=== PATIENT | male | born 1955 | race Hispanic/Latino ===

== ENCOUNTER 2017-04-13 17:25 | Inpatient (IN) | payer BC, OTHER ==
[~2017-04-13] VITALS: Ht 172.7 cm; Wt 96.4 kg
[2017-04-13] MEDS: FAMOTIDINE 20MG TAB 20 MG TAB PO SCH (09:00)
[~2017-04-13 17:25] MED LIST: FOLI1TAB15 PO; FURO40TA7 PO; GLIM2TAB3 PO; LACT10SO PO; MULT-1258 PO; PROP10TA10 PO; RANI150C4 PO; SPIR50TA PO; SUCR1TAB2 PO; THIAM100TB PO
[2017-04-13 18:17] LABS: BASOPHILS % (AUTO) 0.7 % (0.0-5.0); EOSINOPHILS % (AUTO) 2.7 % (0.0-8.0); HEMATOCRIT 35.8 % (42-54); LYMPHOCYTES % (AUTO) 9.9 % (21.0-51.0); MEAN CORPUSCULAR HEMOGLOBIN 35.3 pg (27.0-33.0); MEAN CORPUSCULAR HGB CONC 34.7 g/dL (32.0-36.0); MEAN CORPUSCULAR VOLUME 101.8 fL (79-99); MONOCYTES % (AUTO) 11.4 % (3.0-13.0); NEUTROPHILS % (AUTO) 75.3 % (40.0-77.0); NUCLEATED RED BLOOD CELLS 0.1 % (0.0-0.19); PLATELET COUNT (AUTO) 97 K/uL (130-400); RED BLOOD CELL COUNT(AUTO) 3.51 MIL/uL (4.50-6.20); RED CELL DISTRIBUTION WIDTH 13.8 % (11.0-15.5); WHITE BLOOD COUNT (AUTO) 6.3 K/uL (4.8-10.8)
[2017-04-13 18:27] LABS: CREATININE 0.9 mg/dL (0.5-1.5); POTASSIUM 3.5 mmol/L (3.5-5.1)
[2017-04-13 18:28] LABS: INR 1.23 (0.85-1.15); PARTIAL THROMBOPLASTIN TIME 28.6 SEC (26.3-35.5); PROTHROMBIN TIME 12.9 SEC (9.6-11.6)
[2017-04-13 18:32] LABS: ALBUMIN 2.3 g/dL (3.5-5.0); BILIRUBIN,TOTAL 2.5 mg/dL (0.2-1.0); TOTAL PROTEIN, SERUM 6.6 g/dL (6.0-8.3)
[2017-04-13 18:55] LABS: APPEARANCE,URINE Clear (CLEAR); BILIRUBIN,URINE Negative (NEGATIVE); COLOR,URINE Dark Yellow (YELLOW); GLUCOSE, URINE (UA) Negative (NEGATIVE); KETONES,URINE Negative (NEGATIVE); LEUKOCYTE ESTERASE ,URINE Large (NEGATIVE); NITRATE,URINE Positive (NEGATIVE); OCCULT BLOOD,URINE Moderate (NEGATIVE); PH,URINE 6.5 (5.0-8.0); PROTEIN,URINE Negative (NEGATIVE)
[2017-04-13 19:15] LABS: BACTERIA,URINE Many /HPF (None Seen)
[2017-04-13] MEDS ORDERED: POTASSIUM CHLORIDE 10% ELIXIR 20 MEQ/15 ML UDCUP PO PRN (22:00)
[2017-04-13] MEDS ORDERED: POTASSIUM CHLORIDE 20MEQ/100ML 100 ML IV PRN (22:00)
[2017-04-13] MEDS ORDERED: POTASSIUM CHLORIDE 20 MEQ ERTAB PO PRN (22:00)
[2017-04-13] MEDS: CEFTRIAXONE SODIUM 1 GM IVP SCH (22:00)
[2017-04-13] MEDS ORDERED: LIDOCAINE HCL-MPF 1% 2ML VIAL IJ PRN (22:00)
[2017-04-14] MEDS ORDERED: HYDRALAZINE HCL 20 MG/ML VIAL IV PRN (01:00)
[2017-04-14] MEDS ORDERED: DEXTROSE 50%-WATER 50 ML DISP.SYRIN IV PRN (01:00)
[2017-04-14] MEDS ORDERED: POTASSIUM CHLORIDE 20MEQ/100ML 100 ML IV PRN (01:00)
[2017-04-14] MEDS ORDERED: GLUCAGON 1MG KIT 1 MG ML IM PRN (01:00)
[2017-04-14] MEDS ORDERED: MORPHINE SULFATE 2 MG/ML 1ML SYG IVP PRN ×2 (01:00)
[2017-04-14] MEDS ORDERED: ONDANSETRON HCL 4 MG/2 ML VIAL IVP PRN (01:00)
[2017-04-14] MEDS ORDERED: CEFTRIAXONE SODIUM 1 GM ONE (04:37)
[2017-04-14 05:45] LABS: BASOPHILS % (AUTO) 0.5 % (0.0-5.0); EOSINOPHILS % (AUTO) 2.3 % (0.0-8.0); HEMATOCRIT 35.4 % (42-54); LYMPHOCYTES % (AUTO) 10.8 % (21.0-51.0); MEAN CORPUSCULAR HGB CONC 34.7 g/dL (32.0-36.0); MEAN CORPUSCULAR VOLUME 103.6 fL (79-99); MONOCYTES % (AUTO) 13.2 % (3.0-13.0); NEUTROPHILS % (AUTO) 73.2 % (40.0-77.0); PLATELET COUNT (AUTO) 83 K/uL (130-400); RED BLOOD CELL COUNT(AUTO) 3.42 MIL/uL (4.50-6.20); RED CELL DISTRIBUTION WIDTH 14.2 % (11.0-15.5); WHITE BLOOD COUNT (AUTO) 4.8 K/uL (4.8-10.8)
[2017-04-14 05:55] LABS: INR 1.28 (0.85-1.15); PROTHROMBIN TIME 13.4 SEC (9.6-11.6)
[2017-04-14 06:03] LABS: ALBUMIN 2.2 g/dL (3.5-5.0); BILIRUBIN,TOTAL 2.3 mg/dL (0.2-1.0); CREATININE 1.1 mg/dL (0.5-1.5); POTASSIUM 4.1 mmol/L (3.5-5.1); TOTAL PROTEIN, SERUM 6.1 g/dL (6.0-8.3)
[2017-04-14] MEDS ORDERED: LACTULOSE 20 GM/30 ML UDCUP ONE ×2 (06:37→13:59)
[2017-04-14] MEDS: LACTULOSE 20 GM/30 ML UDCUP PO SCH ×3 (08:34→22:05)
[2017-04-14] MEDS ORDERED: FAMOTIDINE 20MG TAB 20 MG TAB ONE (08:35)
[2017-04-14] MEDS ORDERED: INSULIN HUMULIN R 100 UNIT/ML 3ML ONE ×2 (08:37→11:56)
[2017-04-14] MEDS: INSULIN HUMULIN R 100 UNIT/ML 3ML SQ SCH ×4 (08:41→22:14)
[2017-04-14] MEDS: FAMOTIDINE 20MG TAB 20 MG TAB PO SCH ×2 (08:42→22:05)
[2017-04-14 15:13] LABS: APPEARANCE BODY FLUID CLEAR (CLEAR); SPECIMENTYPE,BODY FLUID ASCITES
[2017-04-14 15:14] LABS: COLOR,BODY FLUID LT YELLOW (LT YELLOW); TOTAL VOLUME,BODY FLUID 2000 mL
[2017-04-14 15:26] LABS: BODY FLUID RBC 275 /cu. mm.
[2017-04-14 15:27] LABS: BODY FLUID WBC 356 /cu. mm.
[2017-04-14 15:36] LABS: ALBUMIN,BODY FLUID < 0.6 g/dL
[2017-04-14 15:44] LABS: BF LYMPHOCYTE 4 %; BF MESOTHELIAL 3 %; BF MONOCYTE 12 %
[2017-04-14 17:01] VITALS: BP 150/69
[2017-04-14 20:00] VITALS: BP 138/71
[2017-04-14] MEDS: CEFTRIAXONE SODIUM 1 GM IVP SCH (22:06)
[2017-04-14 23:57] VITALS: BP 137/69
[2017-04-15 03:24] LABS: BASOPHILS % (AUTO) 0.5 % (0.0-5.0); EOSINOPHILS % (AUTO) 2.8 % (0.0-8.0); HEMATOCRIT 32.4 % (42-54); LYMPHOCYTES % (AUTO) 13.5 % (21.0-51.0); MEAN CORPUSCULAR HEMOGLOBIN 35.5 pg (27.0-33.0); MEAN CORPUSCULAR HGB CONC 34.7 g/dL (32.0-36.0); MEAN CORPUSCULAR VOLUME 102.4 fL (79-99); MONOCYTES % (AUTO) 15.4 % (3.0-13.0); NEUTROPHILS % (AUTO) 67.8 % (40.0-77.0); PLATELET COUNT (AUTO) 70 K/uL (130-400); RED BLOOD CELL COUNT(AUTO) 3.17 MIL/uL (4.50-6.20); RED CELL DISTRIBUTION WIDTH 14.2 % (11.0-15.5); WHITE BLOOD COUNT (AUTO) 3.9 K/uL (4.8-10.8)
[2017-04-15 04:00] VITALS: BP 132/62
[2017-04-15] MEDS: INSULIN HUMULIN R 100 UNIT/ML 3ML SQ SCH ×4 (06:28→21:17)
[2017-04-15 08:00] VITALS: BP 151/68
[2017-04-15] MEDS: FAMOTIDINE 20MG TAB 20 MG TAB PO SCH ×2 (09:24→21:12)
[2017-04-15] MEDS: LACTULOSE 20 GM/30 ML UDCUP PO SCH ×3 (09:24→21:12)
[2017-04-15 12:09] VITALS: BP 147/72
[2017-04-15 16:00] VITALS: BP 128/69
[2017-04-15 20:00] VITALS: BP 133/69
[2017-04-15] MEDS: CEFTRIAXONE SODIUM 1 GM IVP SCH (21:18)
[2017-04-16] VITALS (17 sets, daily range): BP systolic 118–154; BP diastolic 56–79
[2017-04-16 05:48] LABS: BASOPHILS % (AUTO) 0.7 % (0.0-5.0); HEMATOCRIT 33.8 % (42-54); LYMPHOCYTES % (AUTO) 15.2 % (21.0-51.0); MEAN CORPUSCULAR HEMOGLOBIN 36.7 pg (27.0-33.0); MEAN CORPUSCULAR HGB CONC 35.9 g/dL (32.0-36.0); MEAN CORPUSCULAR VOLUME 102.2 fL (79-99); NEUTROPHILS % (AUTO) 68.1 % (40.0-77.0); PLATELET COUNT (AUTO) 82 K/uL (130-400); RED CELL DISTRIBUTION WIDTH 13.7 % (11.0-15.5); WHITE BLOOD COUNT (AUTO) 3.9 K/uL (4.8-10.8)
[2017-04-16 05:52] LABS: INR 1.21 (0.85-1.15); PROTHROMBIN TIME 12.7 SEC (9.6-11.6)
[2017-04-16 06:08] LABS: CREATININE 0.8 mg/dL (0.5-1.5)
[2017-04-16] MEDS: INSULIN HUMULIN R 100 UNIT/ML 3ML SQ SCH ×4 (07:30→22:11)
[2017-04-16] MEDS: LACTULOSE 20 GM/30 ML UDCUP PO SCH ×3 (09:00→21:57)
[2017-04-16] MEDS: FAMOTIDINE 20MG TAB 20 MG TAB PO SCH ×2 (09:00→19:40)
[2017-04-16] MEDS ORDERED: FENTANYL CITRATE PF 50 MCG/1 ML 2ML VIAL ONE ×2 (17:36→17:46)
[2017-04-16] MEDS ORDERED: MIDAZOLAM HCL 1 MG/ML 2ML VIAL ONE (17:36)
[2017-04-16] MEDS: FUROSEMIDE 40 MG TABLET PO SCH (19:40)
[2017-04-16] MEDS: SPIRONOLACTONE 25 MG TAB PO SCH (19:40)
[2017-04-16] MEDS ORDERED: WATER FOR INJECTION,STERILE 20 ML VIAL ONE (21:23)
[2017-04-16] MEDS: CEFTRIAXONE SODIUM 1 GM IVP SCH (21:57)
[2017-04-17 00:20] VITALS: BP 145/74
[2017-04-17 03:53] LABS: HEMATOCRIT 35.9 % (42-54); MEAN CORPUSCULAR HEMOGLOBIN 35.1 pg (27.0-33.0); MEAN CORPUSCULAR HGB CONC 34.4 g/dL (32.0-36.0); MEAN CORPUSCULAR VOLUME 102.1 fL (79-99); PLATELET COUNT (AUTO) 94 K/uL (130-400); RED BLOOD CELL COUNT(AUTO) 3.52 MIL/uL (4.50-6.20); RED CELL DISTRIBUTION WIDTH 14.1 % (11.0-15.5); WHITE BLOOD COUNT (AUTO) 3.9 K/uL (4.8-10.8)
[2017-04-17] MEDS: INSULIN HUMULIN R 100 UNIT/ML 3ML SQ SCH ×2 (06:21→21:00)
[2017-04-17 07:00] VITALS: BP 128/74
[2017-04-17] MEDS: FAMOTIDINE 20MG TAB 20 MG TAB PO SCH ×2 (09:05→20:11)
[2017-04-17] MEDS: SPIRONOLACTONE 25 MG TAB PO SCH (09:05)
[2017-04-17] MEDS: FUROSEMIDE 40 MG TABLET PO SCH (09:05)
[2017-04-17] MEDS: LACTULOSE 20 GM/30 ML UDCUP PO SCH ×3 (09:05→20:11)
[2017-04-17 11:00] VITALS: BP 143/72
[2017-04-17 16:00] VITALS: BP 132/67
[2017-04-17] MEDS ORDERED: WATER FOR INJECTION,STERILE 20 ML VIAL ONE (19:42)
[2017-04-17] MEDS: CEFTRIAXONE SODIUM 1 GM IVP SCH (20:11)
[2017-04-17 21:00] VITALS: BP 127/63
[2017-04-18 00:21] VITALS: BP 125/53
[2017-04-18 04:55] VITALS: BP 127/75
[2017-04-18] MEDS: INSULIN HUMULIN R 100 UNIT/ML 3ML SQ SCH ×2 (06:14→12:07)
[2017-04-18 06:37] LABS: HEMATOCRIT 36.1 % (42-54); MEAN CORPUSCULAR HEMOGLOBIN 36.1 pg (27.0-33.0); MEAN CORPUSCULAR HGB CONC 35.1 g/dL (32.0-36.0); MEAN CORPUSCULAR VOLUME 102.9 fL (79-99); NUCLEATED RED BLOOD CELLS 0.1 % (0.0-0.19); PLATELET COUNT (AUTO) 98 K/uL (130-400); RED BLOOD CELL COUNT(AUTO) 3.51 MIL/uL (4.50-6.20); RED CELL DISTRIBUTION WIDTH 13.9 % (11.0-15.5)
[2017-04-18 07:00] VITALS: BP 157/73
[2017-04-18] MEDS: SPIRONOLACTONE 25 MG TAB PO SCH (09:38)
[2017-04-18] MEDS: FAMOTIDINE 20MG TAB 20 MG TAB PO SCH (09:38)
[2017-04-18] MEDS: LACTULOSE 20 GM/30 ML UDCUP PO SCH (09:39)
[2017-04-18] MEDS: FUROSEMIDE 40 MG TABLET PO SCH (09:39)
[2017-04-18 11:00] VITALS: BP 153/78
[2017-04-18 19:00] VITALS: BP 111/58
== END 2017-04-18 15:05 | disposition home or self-care (01) | DRG 433 ==
LOC: EDH 17:25 → OBSVTOIN 21:20 → EDHIP 21:20 → 3AH 04-14 16:20
PROVIDERS: ADMIT Family Medicine; ATTEND Family Medicine
PROC: 0W9G3ZZ Drainage of Peritoneal Cavity, Percutaneous Approach (ICD-10-PCS; principal; 2017-04-14)
PROC: 0DJ08ZZ Inspection of Upper Intestinal Tract, Via Natural or Artificial Opening Endoscopic (ICD-10-PCS; 2017-04-16)
DX: K70.31 Alcoholic cirrhosis of liver with ascites (principal); N39.0 Urinary tract infection, site not specified; D69.59 Other secondary thrombocytopenia; K76.6 Portal hypertension; E11.65 Type 2 diabetes mellitus with hyperglycemia; E44.1 Mild protein-calorie malnutrition; D62 Acute posthemorrhagic anemia; C18.9 Malignant neoplasm of colon, unspecified; B96.20 Unspecified Escherichia coli [E. coli] as the cause of diseases classified elsewhere; K29.70 Gastritis, unspecified, without bleeding; K55.20 Angiodysplasia of colon without hemorrhage; Z87.891 Personal history of nicotine dependence; Z68.32 Body mass index [BMI] 32.0-32.9, adult; Z88.8 Allergy status to other drugs, medicaments and biological substances
CPT/HCPCS: 36415; 49083; 71046; 80048; 80053; 81001; 82042; 82105; 82140; 82948; 85025; 85027; 85610; 85730; 87071; 87088; 87186; 87205; 89051; A4218; J0696; J1815; J2250; J3010

== ENCOUNTER 2017-08-03 19:01 | Emergency (ER) | payer OTHER ==
[~2017-08-03 19:01] MED LIST changes: -PROP10TA10 PO
[2017-08-03 19:55] LABS: BASOPHILS % (AUTO) 0.5 % (0.0-5.0); EOSINOPHILS % (AUTO) 2.2 % (0.0-8.0); MEAN CORPUSCULAR HEMOGLOBIN 35.1 pg (27.0-33.0); MEAN CORPUSCULAR HGB CONC 35.1 g/dL (32.0-36.0); MEAN CORPUSCULAR VOLUME 99.8 fL (79-99); MONOCYTES % (AUTO) 11.8 % (3.0-13.0); NEUTROPHILS % (AUTO) 74.5 % (40.0-77.0); PLATELET COUNT (AUTO) 94 K/uL (130-400); RED BLOOD CELL COUNT(AUTO) 3.61 MIL/uL (4.50-6.20); RED CELL DISTRIBUTION WIDTH 13.5 % (11.0-15.5); WHITE BLOOD COUNT (AUTO) 5.2 K/uL (4.8-10.8)
[2017-08-03 20:09] LABS: POTASSIUM 3.8 mmol/L (3.5-5.1)
[2017-08-03 20:15] LABS: ALBUMIN 2.4 g/dL (3.5-5.0); TOTAL PROTEIN, SERUM 6.9 g/dL (6.0-8.3)
[2017-08-03 20:49] LABS: RAPID GROUP A STREP NEGATIVE (NEGATIVE)
== END 2017-08-03 21:47 | disposition home or self-care (01) ==
LOC: DTH 19:01
DX: K52.9 Noninfective gastroenteritis and colitis, unspecified (principal); K74.60 Unspecified cirrhosis of liver; E11.9 Type 2 diabetes mellitus without complications; Z88.8 Allergy status to other drugs, medicaments and biological substances; Z98.890 Other specified postprocedural states
CPT/HCPCS: 36415; 80053; 80339; 82140; 83605; 83690; 85025; 87804; 87880; 93005

== ENCOUNTER 2018-10-26 13:44 | Inpatient (IN) | payer OTHER | END 2018-10-29 10:25 | disposition home or self-care (01) | LOC: EDH 13:44 → EDHIP 18:25 → 3AH 21:11 | DX: J20.9 Acute bronchitis, unspecified (principal); R18.8 Other ascites ==

== ENCOUNTER 2019-02-05 16:55 | Inpatient (IN) | payer OTHER ==
[2019-02-04 19:00] VITALS: BP 119/60
[~2019-02-05] VITALS: Ht 172.7 cm; Wt 91.9 kg
[~2019-02-05 16:55] MED LIST changes: +ERGO2000 PO; -FOLI1TAB15 PO; +FURO20TA6 PO; -FURO40TA7 PO; -GLIM2TAB3 PO; +GLIM2TAB4 PO; -LACT10SO PO; +LACT10SO9 PO; +LOSA50TA64 PO; +RIFA550T PO
[2019-02-05] MEDS ORDERED: SODIUM CHLORIDE 0.9% 1000ML 1,000 ML IV ONE ×2 (17:21→19:33)
[2019-02-05 17:36] LABS: BASOPHILS % (AUTO) 0.5 % (0.0-5.0); EOSINOPHILS % (AUTO) 1.4 % (0.0-8.0); HEMATOCRIT 34.4 % (42-54); LYMPHOCYTES % (AUTO) 10.7 % (21.0-51.0); MEAN CORPUSCULAR HEMOGLOBIN 36.2 pg (27.0-33.0); MEAN CORPUSCULAR HGB CONC 35.7 g/dL (32.0-36.0); MEAN CORPUSCULAR VOLUME 101.2 fL (79-99); MONOCYTES % (AUTO) 16.6 % (3.0-13.0); NEUTROPHILS % (AUTO) 70.8 % (40.0-77.0); PLATELET COUNT (AUTO) 99 K/uL (130-400); RED BLOOD CELL COUNT(AUTO) 3.39 MIL/uL (4.50-6.20); RED CELL DISTRIBUTION WIDTH 14.8 % (11.0-15.5); WHITE BLOOD COUNT (AUTO) 5.7 K/uL (4.8-10.8)
[2019-02-05 17:46] LABS: CREATININE 1.9 mg/dL (0.5-1.5)
[2019-02-05 17:55] LABS: ALBUMIN 2.6 g/dL (3.5-5.0); BILIRUBIN,TOTAL 2.1 mg/dL (0.2-1.0); TOTAL PROTEIN, SERUM 6.7 g/dL (6.0-8.3)
[2019-02-05 17:57] LABS: PLATELET MORPHOLOGY COMMENT SLIGHTLY DECREASED
[2019-02-05] MEDS ORDERED: METRONIDAZOLE 500MG/100ML BAG 100 ML ONE (18:41)
[2019-02-05] MEDS ORDERED: LEVOFLOXACIN 500 MG/D5W 100 ML 100 ML ONE (18:41)
[2019-02-05] MEDS: LEVOFLOXACIN 500 MG/D5W 100 ML 100 ML IV SCH (19:00)
[2019-02-05] MEDS ORDERED: SODIUM CHLORIDE 0.9% 1000ML 1,000 ML IV SCH (19:00)
[2019-02-05] MEDS ORDERED: DEXTROSE 50%-WATER 50 ML DISP.SYRIN IV PRN (19:30)
[2019-02-05] MEDS ORDERED: GLUCAGON 1MG KIT 1 MG ML IM PRN (19:30)
[2019-02-05] MEDS: FAMOTIDINE/PF 20 MG/2 ML VIAL IV SCH (21:00)
[2019-02-05] MEDS: INSULIN HUMULIN R 100 UNIT/ML 3ML SQ SCH (21:00)
[2019-02-05] MEDS ORDERED: RIFA550T PO (21:46)
[2019-02-05] MEDS ORDERED: ERGO1POW10 MC (21:50)
[2019-02-05] MEDS ORDERED: THIA100T75 PO (21:56)
[2019-02-05] MEDS ORDERED: FURO40TA5 PO (21:56)
[2019-02-05] MEDS ORDERED: FAMO20TA8 PO (21:56)
[2019-02-05] MEDS ORDERED: SPIR50TA5 PO (21:56)
[2019-02-05 22:26] LABS: APPEARANCE,URINE Clear (CLEAR); BILIRUBIN,URINE Negative (NEGATIVE); COLOR,URINE Yellow (YELLOW); GLUCOSE, URINE (UA) Negative (NEGATIVE); KETONES,URINE Negative (NEGATIVE); LEUKOCYTE ESTERASE ,URINE Negative (NEGATIVE); NITRATE,URINE Negative (NEGATIVE); OCCULT BLOOD,URINE Negative (NEGATIVE); PROTEIN,URINE Negative (NEGATIVE)
[2019-02-05] MEDS: MORPHINE SULFATE 2 MG/ML 1ML SYG IV PRN (22:34)
[2019-02-05 22:35] LABS: AMPHET/METH SCREEN,URINE NEGATIVE (NEGATIVE); BARBITURATE SCREEN, URINE NEGATIVE (NEGATIVE); BENZODIAZEPINES SCREEN,URINE NEGATIVE (NEGATIVE); CANNABINOID SCREEN,URINE NEGATIVE (NEGATIVE); COCAINE SCREEN,URINE POSITIVE (NEGATIVE); OPIATE SCREEN,URINE NEGATIVE (NEGATIVE); PHENCYCLIDINE SCREEN,URINE NEGATIVE (NEGATIVE)
[2019-02-05 23:49] VITALS: BP 124/57
--- NOTE | 2019-02-05 23:52 | NUR ---
fluids karley Bain and ordered Normal Saline at 100 ml/hr to prevent dehydration due to patient's diarrhea
[2019-02-06] VITALS (16 sets, daily range): BP systolic 103–140; BP diastolic 43–61
[2019-02-06] MEDS: SODIUM CHLORIDE 0.9% 1000ML 1,000 ML IV SCH ×3 (00:28→20:00)
[2019-02-06] MEDS: ONDANSETRON HCL 4 MG/2 ML VIAL IV PRN ×2 (00:40→06:22)
[2019-02-06] MEDS: MORPHINE SULFATE 2 MG/ML 1ML SYG IV PRN ×3 (01:58→08:44)
[2019-02-06] MEDS: PROMETHAZINE HCL 25 MG/ML 1ML AMPULE IM SCH (01:59)
[2019-02-06] MEDS: METRONIDAZOLE 500MG/100ML BAG 100 ML IV SCH ×4 (03:16→22:03)
[2019-02-06 05:15] LABS: CREATININE 1.3 mg/dL (0.5-1.5); POTASSIUM 4.6 mmol/L (3.5-5.1)
[2019-02-06 05:30] LABS: BASOPHILS % (AUTO) 0.3 % (0.0-5.0); EOSINOPHILS % (AUTO) 0.2 % (0.0-8.0); HEMATOCRIT 33.4 % (42-54); LYMPHOCYTES % (AUTO) 6.8 % (21.0-51.0); MEAN CORPUSCULAR HEMOGLOBIN 36.9 pg (27.0-33.0); MEAN CORPUSCULAR HGB CONC 35.9 g/dL (32.0-36.0); MEAN CORPUSCULAR VOLUME 102.9 fL (79-99); MONOCYTES % (AUTO) 10.4 % (3.0-13.0); NEUTROPHILS % (AUTO) 82.3 % (40.0-77.0); PLATELET COUNT (AUTO) 75 K/uL (130-400); RED BLOOD CELL COUNT(AUTO) 3.24 MIL/uL (4.50-6.20); RED CELL DISTRIBUTION WIDTH 14.4 % (11.0-15.5); WHITE BLOOD COUNT (AUTO) 5.6 K/uL (4.8-10.8)
[2019-02-06] MEDS: SUCRALFATE 1 GM TABLET PO SCH ×3 (07:01→19:33)
[2019-02-06] MEDS: INSULIN HUMULIN R 100 UNIT/ML 3ML SQ SCH ×4 (07:30→20:57)
[2019-02-06] MEDS ORDERED: MORPHINE SULFATE 4 MG/1ML SYG IV PRN (08:30)
[2019-02-06] MEDS: SPIRONOLACTONE 25 MG TAB PO SCH (08:45)
[2019-02-06] MEDS: FAMOTIDINE/PF 20 MG/2 ML VIAL IV SCH ×2 (08:45→21:54)
[2019-02-06] MEDS: LOSARTAN 50 MG TABLET PO SCH (08:45)
[2019-02-06] MEDS: RIFAXIMIN 550 MG TABLET PO SCH ×2 (08:46→21:54)
[2019-02-06] MEDS: FUROSEMIDE 40 MG TABLET PO SCH (08:46)
[2019-02-06] MEDS: THIAMINE HCL 100 MG TABLET PO SCH (08:46)
[2019-02-06 11:36] LABS: INR 1.23 (0.85-1.15); PARTIAL THROMBOPLASTIN TIME 32.1 SEC (26.3-35.5); PROTHROMBIN TIME 12.8 SEC (9.6-11.6)
[2019-02-06] MEDS ORDERED: GLYCOPYRROLATE 0.2 MG/ML 5 ML VIAL ONE (13:50)
[2019-02-06] MEDS ORDERED: PROPOFOL 10 MG/ML 20ML VIAL IV ONE (13:50)
[2019-02-06] MEDS ORDERED: LIDOCAINE HCL 1% 20 ML VIAL ONE (13:51)
[2019-02-06] MEDS ORDERED: SUCCINYLCHOLINE CHLORIDE 20 MG/ML 10 ML VIAL ONE (13:51)
--- NOTE | 2019-02-06 13:55 | NUR ---
pt off the floor for an EGD by Dr. Main at this time.
--- NOTE | 2019-02-06 16:53 | NUR ---
RD NOTIFICATION Dx: Gastroenteritis, Sepsis. Hx: Liver Cirrhosis, Ascites, DM, HTN, Hernia. Diet: NPO. LBM: 02/05; diarrhea. Skin intact, no edema noted. Pt with poor appetite prior to admission and experiencing severe abdominal pain. Pain improving as per pt. Pt stated he is eating healthier these past couple of weeks and would like more information regarding dietary recommendations. RD recommends continue current diet. Advance diet as tolerated to 75gmCCD, 2gmNa, Low fat. Recommend a multivitamin supplement. Recommend Vitamin B12 and Folic acid blood draw due to elevated MCV and MCH. RD provided Cirrhosis, Diabetes and Low fat Medical Nutrition Therapy. Recommend GI consult due to positive stool occult. RD will continue to monitor and follow up as needed. Thank you. Dottie Aldridge MS, RDN Addendum: 02/06/19 at [address] RD Amended: Links added. Addendum: 02/07/19 at [address] RD Recommend Vitamin B12 and Folic acid supplementation due to elevated MCV and MCH
--- NOTE | 2019-02-06 16:54 | NUR ---
DIET EDUCATION Pt stated he is eating healthier these past couple of weeks and would like more information regarding dietary recommendations. NEYMAR provided Cirrhosis, Diabetes and Low fat Medical Nutrition Therapy. Family asked questions, NEYMAR answered. Family verbalized understanding. Materials provided. Addendum: 02/06/19 at [address] RD Amended: Links added.
--- NOTE | 2019-02-06 17:56 | NUR ---
INITIAL MET W PT AND SPOUSE MARIIA WHO WILL PROVIDE TRANSPORT; PT HAS HAD CIRRHOSIS X14 YEARS,2 SCOPES, 3 PARACENTESISI, LAST IN OCTOBER. DOES NOT WORK, IS INDP, DRIVE, NO DME- BUT IS VERY WEAK AND HAS A LOT OF BACK PAIN WHEN STANDING OR SITTING TOO LONG. WILL DO PT EVAL FOR POSSIBLE ROLLING WALKER? PATIET THOUGHT THIS WOULD BE VERY HELPFUL HE CANNOT WALK LONG DISTANCES AND HAS TO LOOK SUDDENLY FOR A PLACE TO SIT. STATES WAS HAPPY TO HAVE NUTRITION CONSULT. Addendum: 02/06/19 at 1800 by SUREKHA LALA RN CM Amended: Links added.
[2019-02-06] MEDS: LEVOFLOXACIN 500 MG/D5W 100 ML 100 ML IV SCH (19:33)
[2019-02-06] MEDS ORDERED: LACTULOSE 20 GM/30 ML UDCUP PO SCH (21:00)
[2019-02-07] MEDS: PROMETHAZINE HCL 25 MG/ML 1ML AMPULE IM SCH (01:15)
[2019-02-07 03:39] VITALS: BP 126/69
[2019-02-07 05:16] LABS: BASOPHILS % (AUTO) 0.4 % (0.0-5.0); EOSINOPHILS % (AUTO) 2.3 % (0.0-8.0); HEMATOCRIT 33.2 % (42-54); LYMPHOCYTES % (AUTO) 13.3 % (21.0-51.0); MEAN CORPUSCULAR HEMOGLOBIN 36.9 pg (27.0-33.0); MEAN CORPUSCULAR VOLUME 102.6 fL (79-99); MONOCYTES % (AUTO) 14.2 % (3.0-13.0); NEUTROPHILS % (AUTO) 69.8 % (40.0-77.0); PLATELET COUNT (AUTO) 90 K/uL (130-400); RED BLOOD CELL COUNT(AUTO) 3.24 MIL/uL (4.50-6.20); RED CELL DISTRIBUTION WIDTH 14.6 % (11.0-15.5); WHITE BLOOD COUNT (AUTO) 4.7 K/uL (4.8-10.8)
[2019-02-07 05:21] LABS: ALBUMIN 2.4 g/dL (3.5-5.0); BILIRUBIN,DIRECT 0.7 mg/dL (0.0-0.3); BILIRUBIN,TOTAL 1.4 mg/dL (0.2-1.0); CREATININE 1.2 mg/dL (0.5-1.5); POTASSIUM 3.7 mmol/L (3.5-5.1); TOTAL PROTEIN, SERUM 6.4 g/dL (6.0-8.3)
[2019-02-07] MEDS: INSULIN HUMULIN R 100 UNIT/ML 3ML SQ SCH (05:52)
[2019-02-07] MEDS: SODIUM CHLORIDE 0.9% 1000ML 1,000 ML IV SCH (06:00)
[2019-02-07] MEDS: METRONIDAZOLE 500MG/100ML BAG 100 ML IV SCH (06:23)
[2019-02-07] MEDS: SUCRALFATE 1 GM TABLET PO SCH ×2 (06:23→11:14)
[2019-02-07 08:15] VITALS: BP 114/58
[2019-02-07] MEDS: FAMOTIDINE/PF 20 MG/2 ML VIAL IV SCH (11:13)
[2019-02-07] MEDS: FUROSEMIDE 40 MG TABLET PO SCH (11:14)
[2019-02-07] MEDS: LOSARTAN 50 MG TABLET PO SCH (11:14)
[2019-02-07] MEDS: RIFAXIMIN 550 MG TABLET PO SCH (11:14)
[2019-02-07] MEDS: SPIRONOLACTONE 25 MG TAB PO SCH (11:14)
[2019-02-07] MEDS: THIAMINE HCL 100 MG TABLET PO SCH (11:14)
[2019-02-07 19:17] VITALS: BP 131/72
[2019-02-10] MEDS ORDERED: EPINEPHRINE 1 MG/ML AMPULE ONE (10:08)
[2019-02-10] MEDS ORDERED: PROTAMINE SULFATE 10 MG/ML 25ML VIAL IV ONE (10:08)
[2019-02-10] MEDS ORDERED: AMINOCAPROIC ACID 250 MG/ML 20 ML VIAL IV ONE (10:08)
[2019-02-10] MEDS ORDERED: ESMOLOL HCL 10 MG/ML 10 ML VIAL ONE (10:08)
[2019-02-10] MEDS ORDERED: HEPARIN SODIUM 1000UNIT/ML 10ML VIAL ONE (10:08)
[2019-02-10] MEDS ORDERED: NOREPINEPHRINE BITARTRATE 1 MG/1 ML ML IV ONE (10:08)
[2019-02-10] MEDS ORDERED: LIDOCAINE PF 2% 5ML ABBOJECT ONE (10:08)
[2019-02-12] MEDS ORDERED: ERGOCALCIFEROL (VITAMIN D2) 50,000 UNIT CAPSULE PO SCH (06:30)
== END 2019-02-07 12:35 | disposition home or self-care (01) | DRG 871 ==
LOC: EDH 16:55 → EDHIP 18:46 → 3CH 21:18
PROVIDERS: ADMIT Hospitalist; ATTEND Hospitalist
PROC: 0DJ08ZZ Inspection of Upper Intestinal Tract, Via Natural or Artificial Opening Endoscopic (ICD-10-PCS; principal; 2019-02-06)
DX: A41.9 Sepsis, unspecified organism (principal); R65.21 Severe sepsis with septic shock; A09 Infectious gastroenteritis and colitis, unspecified; E44.0 Moderate protein-calorie malnutrition; D62 Acute posthemorrhagic anemia; E87.1 Hypo-osmolality and hyponatremia; K76.6 Portal hypertension; K26.7 Chronic duodenal ulcer without hemorrhage or perforation; K29.00 Acute gastritis without bleeding; K31.89 Other diseases of stomach and duodenum; K21.0 Gastro-esophageal reflux disease with esophagitis; I95.9 Hypotension, unspecified; K80.20 Calculus of gallbladder without cholecystitis without obstruction; K70.30 Alcoholic cirrhosis of liver without ascites; E86.1 Hypovolemia; R16.1 Splenomegaly, not elsewhere classified; R94.4 Abnormal results of kidney function studies; K57.30 Diverticulosis of large intestine without perforation or abscess without bleeding; I10 Essential (primary) hypertension; F14.10 Cocaine abuse, uncomplicated; E78.5 Hyperlipidemia, unspecified; F10.21 Alcohol dependence, in remission; E11.9 Type 2 diabetes mellitus without complications; Z96.1 Presence of intraocular lens; Z83.3 Family history of diabetes mellitus; Z82.49 Family history of ischemic heart disease and other diseases of the circulatory system; Z88.8 Allergy status to other drugs, medicaments and biological substances; Z91.09 Other allergy status, other than to drugs and biological substances; Z68.30 Body mass index [BMI] 30.0-30.9, adult; Z98.42 Cataract extraction status, left eye; Z98.41 Cataract extraction status, right eye
CPT/HCPCS: 36415; 43235; 71045; 74176; 80048; 80053; 80076; 80305; 81003; 82140; 82150; 82270; 82550; 82948; 83605; 83630; 83690; 84484; 85025; 85610; 85730; 86677; 87040; 87046; 93005; G0378; G0480; J0330; J1956; J2405; J2550; J2704; J3490; J7030

== ENCOUNTER 2019-02-27 08:10 | Emergency (ER) | payer OTHER ==
[~2019-02-27 08:10] MED LIST changes: +ERGO1POW10 MC; -ERGO2000 PO; +FAMO20TA8 PO; -FURO20TA6 PO; +FURO40TA5 PO; -SPIR50TA PO; +SPIR50TA5 PO; +THIA100T75 PO; -THIAM100TB PO
[2019-02-27 08:40] LABS: CREATININE 1.2 mg/dL (0.5-1.5); POTASSIUM 4.2 mmol/L (3.5-5.1)
[2019-02-27 08:45] LABS: ALBUMIN 2.4 g/dL (3.5-5.0); BILIRUBIN,TOTAL 1.1 mg/dL (0.2-1.0); TOTAL PROTEIN, SERUM 6.4 g/dL (6.0-8.3)
[2019-02-27 08:51] LABS: BASOPHILS % (AUTO) 0.7 % (0.0-5.0); EOSINOPHILS % (AUTO) 4.5 % (0.0-8.0); HEMATOCRIT 32.6 % (42-54); LYMPHOCYTES % (AUTO) 14.9 % (21.0-51.0); MEAN CORPUSCULAR HEMOGLOBIN 36.7 pg (27.0-33.0); MEAN CORPUSCULAR HGB CONC 34.9 g/dL (32.0-36.0); MEAN CORPUSCULAR VOLUME 105.3 fL (79-99); MONOCYTES % (AUTO) 12.2 % (3.0-13.0); NEUTROPHILS % (AUTO) 67.7 % (40.0-77.0); NUCLEATED RED BLOOD CELLS 0.1 % (0.0-0.19); PLATELET COUNT (AUTO) 89 K/uL (130-400); RED BLOOD CELL COUNT(AUTO) 3.09 MIL/uL (4.50-6.20); RED CELL DISTRIBUTION WIDTH 14.2 % (11.0-15.5); WHITE BLOOD COUNT (AUTO) 4.5 K/uL (4.8-10.8)
[2019-02-27] MEDS ORDERED: LACTULOSE 20 GM/30 ML UDCUP ONE (08:53)
[2019-02-27 09:52] LABS: PLATELET MORPHOLOGY COMMENT DECREASED
== END 2019-02-27 10:09 | disposition home or self-care (01) ==
LOC: EDH 08:10
DX: K72.90 Hepatic failure, unspecified without coma (principal); R00.1 Bradycardia, unspecified; E11.9 Type 2 diabetes mellitus without complications; K74.60 Unspecified cirrhosis of liver; Z98.890 Other specified postprocedural states; Z88.8 Allergy status to other drugs, medicaments and biological substances
CPT/HCPCS: 36415; 80053; 82140; 83690; 85025

== ENCOUNTER 2019-05-25 00:32 | Emergency (ER) | payer OTHER ==
[~2019-05-25 00:32] MED LIST changes: +GLIM2TAB30 PO; -GLIM2TAB4 PO
[2019-05-25] MEDS ORDERED: SODIUM CHLORIDE 0.9% 1000ML 1,000 ML IV ONE (01:01)
[2019-05-25] MEDS ORDERED: ONDANSETRON HCL 4 MG/2 ML VIAL ONE (01:01)
[2019-05-25 01:36] LABS: APPEARANCE,URINE Clear (CLEAR); BILIRUBIN,URINE Negative (NEGATIVE); COLOR,URINE Yellow (YELLOW); GLUCOSE, URINE (UA) >=1000 mg/dL (NEGATIVE); KETONES,URINE Negative (NEGATIVE); LEUKOCYTE ESTERASE ,URINE Negative (NEGATIVE); NITRATE,URINE Negative (NEGATIVE); OCCULT BLOOD,URINE Negative (NEGATIVE); PH,URINE 6.5 (5.0-8.0); PROTEIN,URINE Negative (NEGATIVE)
[2019-05-25 01:41] LABS: BASOPHILS % (AUTO) 0.6 % (0.0-5.0); CREATININE 1.1 mg/dL (0.5-1.5); EOSINOPHILS % (AUTO) 2.7 % (0.0-8.0); HEMATOCRIT 31.2 % (42-54); LYMPHOCYTES % (AUTO) 14.5 % (21.0-51.0); MEAN CORPUSCULAR HEMOGLOBIN 34.9 pg (27.0-33.0); MEAN CORPUSCULAR HGB CONC 35.3 g/dL (32.0-36.0); MONOCYTES % (AUTO) 13.6 % (3.0-13.0); NEUTROPHILS % (AUTO) 68.2 % (40.0-77.0); PLATELET COUNT (AUTO) 107 K/uL (130-400); POTASSIUM 4.4 mmol/L (3.5-5.1); RED BLOOD CELL COUNT(AUTO) 3.15 MIL/uL (4.50-6.20); RED CELL DISTRIBUTION WIDTH 13.5 % (11.0-15.5)
[2019-05-25 01:46] LABS: ALBUMIN 2.3 g/dL (3.5-5.0); BILIRUBIN,TOTAL 1.1 mg/dL (0.2-1.0); TOTAL PROTEIN, SERUM 6.5 g/dL (6.0-8.3)
[2019-05-25 01:54] LABS: INR 1.22 (0.85-1.15); PROTHROMBIN TIME 12.7 SEC (9.6-11.6)
[2019-05-25 01:55] LABS: BACTERIA,URINE None Seen /HPF (None Seen); RBC,URINE None Seen /HPF (0-1); SQUAMOUS EPITHELIAL CELL,UR Rare /HPF (0-2); WBC,URINE None Seen /HPF (0-1); YEAST,URINE BUDDING None Seen /HPF (None Seen)
[2019-05-25] MEDS ORDERED: IOHEXOL-350 75 ML VIAL IV ONE (03:27)
== END 2019-05-25 05:33 | disposition home or self-care (01) ==
LOC: EDH 00:32
DX: K29.70 Gastritis, unspecified, without bleeding (principal); E11.9 Type 2 diabetes mellitus without complications; Z88.8 Allergy status to other drugs, medicaments and biological substances; Z87.891 Personal history of nicotine dependence
CPT/HCPCS: 36415; 74177; 76705; 80053; 81001; 82140; 83605; 83690; 84484; 85025; 85610; 85730; 93005; 96361; 96374; 96375; 99285; J2405; J7030; Q9967

== ENCOUNTER 2019-06-22 16:16 | Inpatient (IN) | payer OTHER ==
[~2019-06-22] VITALS: Ht 172.7 cm; Wt 92.3 kg
[2019-06-22] MEDS ORDERED: ASPIRIN 325 MG TABLET ONE (16:23)
[2019-06-22 16:48] LABS: BASOPHILS % (AUTO) 0.6 % (0.0-5.0); EOSINOPHILS % (AUTO) 3.7 % (0.0-8.0); HEMATOCRIT 29.3 % (42-54); LYMPHOCYTES % (AUTO) 9.5 % (21.0-51.0); MEAN CORPUSCULAR HEMOGLOBIN 34.4 pg (27.0-33.0); MEAN CORPUSCULAR HGB CONC 34.1 g/dL (32.0-36.0); MEAN CORPUSCULAR VOLUME 100.7 fL (79-99); MONOCYTES % (AUTO) 13.2 % (3.0-13.0); NEUTROPHILS % (AUTO) 72.6 % (40.0-77.0); PLATELET COUNT (AUTO) 103 K/uL (130-400); RED BLOOD CELL COUNT(AUTO) 2.91 MIL/uL (4.50-6.20); RED CELL DISTRIBUTION WIDTH 13.1 % (11.0-15.5); WHITE BLOOD COUNT (AUTO) 5.2 K/uL (4.8-10.8)
[2019-06-22 17:04] LABS: INR 1.14 (0.85-1.15); PARTIAL THROMBOPLASTIN TIME 29.9 SEC (26.3-35.5); PROTHROMBIN TIME 12.2 SEC (9.6-11.6)
[2019-06-22 17:12] LABS: CREATININE 0.9 mg/dL (0.5-1.5); POTASSIUM 3.6 mmol/L (3.5-5.1)
[2019-06-22 17:17] LABS: ALBUMIN 2.2 g/dL (3.5-5.0); BILIRUBIN,TOTAL 1.2 mg/dL (0.2-1.0); TOTAL PROTEIN, SERUM 6.3 g/dL (6.0-8.3)
[2019-06-22] MEDS ORDERED: SODIUM CHLORIDE 0.9% 1000ML 1,000 ML IV SCH (18:38)
[2019-06-22] MEDS ORDERED: GLUCAGON 1MG KIT 1 MG ML IM PRN (18:45)
[2019-06-22] MEDS ORDERED: DEXTROSE 50%-WATER 50 ML DISP.SYRIN IV PRN (18:45)
[2019-06-22] MEDS ORDERED: DiphenhydrAMINE HCL 50 MG/ML VIAL IV PRN (18:45)
[2019-06-22] MEDS ORDERED: ACETAMINOPHEN 325 MG TAB PO PRN ×2 (18:45)
[2019-06-22] MEDS ORDERED: CALCIUM CARBON 500MG CHEW TAB PO SCH (18:45)
[2019-06-22] MEDS ORDERED: NITROGLYCERIN 0.4 MG SL TAB SL PRN (18:45)
[2019-06-22] MEDS ORDERED: ONDANSETRON HCL 4 MG/2 ML VIAL IV PRN (18:45)
[2019-06-22 19:03] LABS: APPEARANCE,URINE Clear (CLEAR); BILIRUBIN,URINE Negative (NEGATIVE); COLOR,URINE Yellow (YELLOW); GLUCOSE, URINE (UA) TRACE mg/dL (NEGATIVE); KETONES,URINE Negative (NEGATIVE); LEUKOCYTE ESTERASE ,URINE Negative (NEGATIVE); NITRATE,URINE Negative (NEGATIVE); OCCULT BLOOD,URINE Negative (NEGATIVE); PROTEIN,URINE Negative (NEGATIVE)
[2019-06-22 19:10] LABS: AMPHET/METH SCREEN,URINE NEGATIVE (NEGATIVE); BARBITURATE SCREEN, URINE NEGATIVE (NEGATIVE); BENZODIAZEPINES SCREEN,URINE NEGATIVE (NEGATIVE); CANNABINOID SCREEN,URINE NEGATIVE (NEGATIVE); COCAINE SCREEN,URINE POSITIVE (NEGATIVE); OPIATE SCREEN,URINE NEGATIVE (NEGATIVE); PHENCYCLIDINE SCREEN,URINE NEGATIVE (NEGATIVE)
[2019-06-22 19:18] LABS: HEMOGLOBIN A1C 8.2 % (4.0-6.0)
[2019-06-22 19:34] LABS: BACTERIA,URINE None Seen /HPF (None Seen); RBC,URINE 0-1 /HPF (0-1); SQUAMOUS EPITHELIAL CELL,UR None Seen /HPF (0-2); WBC,URINE None Seen /HPF (0-1)
[2019-06-22] MEDS ORDERED: FAMOTIDINE 20MG TAB 20 MG TAB ONE (20:18)
[2019-06-22] MEDS ORDERED: FAMOTIDINE/PF 20 MG/2 ML VIAL IV SCH (21:00)
[2019-06-22] MEDS: INSULIN HUMULIN R 100 UNIT/ML 3ML SQ SCH (21:00)
[2019-06-22 21:05] VITALS: BP 127/60
[2019-06-22 21:17] LABS: CREATINE KINASE, TOTAL 152 U/L (21-232); MYOGLOBIN 79 ng/mL (10-92); TROPONIN I < 0.04 ng/mL (0.00-0.06)
[2019-06-22 22:25] LABS: CREATINE KINASE, TOTAL 120 U/L (21-232); MYOGLOBIN 69 ng/mL (10-92); TROPONIN I < 0.04 ng/mL (0.00-0.06)
[2019-06-22] MEDS ORDERED: LIDOCAINE HCL-MPF 1% 2ML VIAL IJ PRN (23:30)
[2019-06-22] MEDS ORDERED: POTASSIUM CHLORIDE 20 MEQ ERTAB PO PRN (23:30)
[2019-06-22] MEDS ORDERED: MAGNESIUM 2GM PREMIX 50ML 50 ML IV PRN (23:30)
[2019-06-22] MEDS ORDERED: POTASSIUM CHLORIDE 20MEQ/100ML 100 ML IV PRN (23:30)
[2019-06-23] MEDS ORDERED: LACTULOSE 20 GM/30 ML UDCUP ONE (00:20)
[2019-06-23] MEDS: POTASSIUM CHLORIDE 10% ELIXIR 20 MEQ/15 ML UDCUP PO PRN ×2 (00:24→01:04)
[2019-06-23 00:33] VITALS: BP 120/61
[2019-06-23 01:40] LABS: CREATINE KINASE, TOTAL 144 U/L (21-232); MYOGLOBIN 61 ng/mL (10-92); TROPONIN I < 0.04 ng/mL (0.00-0.06)
[2019-06-23 04:20] VITALS: BP 112/50
--- NOTE | 2019-06-23 04:23 | NUR ---
PATIENT UPDATE No complaints of chest pain overnight, no shortness of breath. Running NSR in the 60's, no ectopies noted. Started on hypokalemia protocol for a potassium of 3.6. On NS at 100 cc/hr . Not in any form of discomfort.
[2019-06-23 04:29] LABS: HEMATOCRIT 25.8 % (42-54); MEAN CORPUSCULAR HEMOGLOBIN 34.3 pg (27.0-33.0); MEAN CORPUSCULAR HGB CONC 33.7 g/dL (32.0-36.0); MEAN CORPUSCULAR VOLUME 101.6 fL (79-99); PLATELET COUNT (AUTO) 69 K/uL (130-400); RED BLOOD CELL COUNT(AUTO) 2.54 MIL/uL (4.50-6.20); RED CELL DISTRIBUTION WIDTH 13.2 % (11.0-15.5); WHITE BLOOD COUNT (AUTO) 3.1 K/uL (4.8-10.8)
[2019-06-23 04:38] LABS: CREATININE 1.1 mg/dL (0.5-1.5); POTASSIUM 4.3 mmol/L (3.5-5.1)
[2019-06-23 05:16] LABS: ALBUMIN 1.9 g/dL (3.5-5.0); BILIRUBIN,TOTAL 3.3 mg/dL (0.2-1.0); TOTAL PROTEIN, SERUM 5.5 g/dL (6.0-8.3)
[2019-06-23] MEDS: INSULIN HUMULIN R 100 UNIT/ML 3ML SQ SCH ×4 (06:05→20:51)
[2019-06-23 07:30] VITALS: BP 115/57
[2019-06-23] MEDS ORDERED: METOPROLOL TARTRATE 25 MG TAB PO SCH (09:00)
[2019-06-23] MEDS ORDERED: ASPIRIN 325 MG TABLET PO SCH (09:00)
[2019-06-23] MEDS: RANITIDINE HCL 15 MG/1 ML PO SCH ×2 (09:07→21:50)
[2019-06-23] MEDS: SPIRONOLACTONE 25 MG TAB PO SCH (09:08)
[2019-06-23] MEDS: RIFAXIMIN 550 MG TABLET PO SCH ×2 (09:08→21:50)
[2019-06-23] MEDS: ASPIRIN 81 MG EC TAB PO SCH (09:08)
[2019-06-23] MEDS: SUCRALFATE 1 GM TABLET PO SCH ×3 (09:09→17:53)
[2019-06-23] MEDS: CALCIUM CARBON 500MG CHEW TAB PO SCH (09:09)
[2019-06-23] MEDS: GLIMEPIRIDE 2 MG TABLET PO SCH (09:09)
[2019-06-23] MEDS: LOSARTAN 50 MG TABLET PO SCH (09:09)
[2019-06-23] MEDS: MULTIVITAMIN WITH MINERALS TABLET PO SCH (09:09)
[2019-06-23] MEDS: FUROSEMIDE 40 MG TABLET PO SCH (09:09)
[2019-06-23] MEDS: THIAMINE HCL 100 MG TABLET PO SCH (09:09)
[2019-06-23 11:00] VITALS: BP 123/57
[2019-06-23] MEDS: FOLIC ACID 1 MG TABLET PO SCH (14:22)
[2019-06-23] MEDS: CYANOCOBALAMIN (VITAMIN B-12) 1,000 MCG TABLET PO SCH (14:22)
[2019-06-23 16:00] VITALS: BP 123/58
--- NOTE | 2019-06-23 16:13 | NUR ---
INITIAL Patient lives with spouse, Mitzy Mg, [phone]. No home services. DME: B[facility], glucometer (no insulin). Patient is able to complete ADL's independently and drives. PCP is Dr. Salvador. He is a new patient. Pharmacy is [facility] located on [address]. DCP is home. Addendum: 06/23/19 at 1621 by LEIDY RICARDO SS Amended: Links added.
[2019-06-23] MEDS ORDERED: LACTULOSE 20 GM/30 ML UDCUP PO SCH (21:00)
[2019-06-23 21:15] VITALS: BP 104/58
[2019-06-24 00:20] VITALS: BP 118/54
[2019-06-24 04:02] VITALS: BP 118/52
[2019-06-24 05:36] LABS: BASOPHILS % (AUTO) 0.6 % (0.0-5.0); EOSINOPHILS % (AUTO) 3.6 % (0.0-8.0); LYMPHOCYTES % (AUTO) 10.6 % (21.0-51.0); MEAN CORPUSCULAR HEMOGLOBIN 35.4 pg (27.0-33.0); MEAN CORPUSCULAR VOLUME 101.2 fL (79-99); MONOCYTES % (AUTO) 10.4 % (3.0-13.0); NEUTROPHILS % (AUTO) 74.5 % (40.0-77.0); PLATELET COUNT (AUTO) 72 K/uL (130-400); RED BLOOD CELL COUNT(AUTO) 2.57 MIL/uL (4.50-6.20); RED CELL DISTRIBUTION WIDTH 13.2 % (11.0-15.5); WHITE BLOOD COUNT (AUTO) 3.6 K/uL (4.8-10.8)
[2019-06-24 05:57] LABS: POTASSIUM 3.9 mmol/L (3.5-5.1)
[2019-06-24] MEDS: INSULIN HUMULIN R 100 UNIT/ML 3ML SQ SCH ×3 (06:45→17:13)
--- NOTE | 2019-06-24 06:50 | NUR ---
PATIENT UPDATE No chest pain ,no shortness of breath. No signs of bleeding, slept well overnight. Obstetrics Gyn Physician / Dr. Lerma ok'd for the pt to be discharge, Dr. Main still pending to see the patient. Vital signs stable, no complaints voiced out.
[2019-06-24] MEDS: CALCIUM CARBON 500MG CHEW TAB PO SCH (07:30)
[2019-06-24 08:00] VITALS: BP 114/66
[2019-06-24] MEDS: RANITIDINE HCL 15 MG/1 ML PO SCH (08:31)
[2019-06-24] MEDS: FUROSEMIDE 40 MG TABLET PO SCH (08:32)
[2019-06-24] MEDS: RIFAXIMIN 550 MG TABLET PO SCH (08:32)
[2019-06-24] MEDS: SUCRALFATE 1 GM TABLET PO SCH ×3 (08:32→17:10)
[2019-06-24] MEDS: LOSARTAN 50 MG TABLET PO SCH (08:32)
[2019-06-24] MEDS: ASPIRIN 81 MG EC TAB PO SCH (08:32)
[2019-06-24] MEDS: GLIMEPIRIDE 2 MG TABLET PO SCH (08:32)
[2019-06-24] MEDS: FOLIC ACID 1 MG TABLET PO SCH (08:33)
[2019-06-24] MEDS: CYANOCOBALAMIN (VITAMIN B-12) 1,000 MCG TABLET PO SCH (08:33)
[2019-06-24] MEDS: THIAMINE HCL 100 MG TABLET PO SCH (08:33)
[2019-06-24] MEDS: MULTIVITAMIN WITH MINERALS TABLET PO SCH (08:33)
[2019-06-24] MEDS: SPIRONOLACTONE 25 MG TAB PO SCH (08:33)
[2019-06-24 12:00] VITALS: BP 113/60
[2019-06-24 16:00] VITALS: BP 104/55
[2019-06-25] MEDS ORDERED: ERGOCALCIFEROL (VITAMIN D2) 50,000 UNIT CAPSULE PO SCH (06:30)
== END 2019-06-24 19:35 | disposition home or self-care (01) | DRG 313 ==
LOC: EDH 16:16 → EDHIP 19:05 → OBSVTOIN 19:05 → 3CH 20:38
PROVIDERS: ADMIT Internal Medicine; ATTEND Internal Medicine
DX: R07.9 Chest pain, unspecified (principal); D61.818 Other pancytopenia; E87.1 Hypo-osmolality and hyponatremia; K74.60 Unspecified cirrhosis of liver; F14.10 Cocaine abuse, uncomplicated; D73.1 Hypersplenism; E11.9 Type 2 diabetes mellitus without complications; Z98.49 Cataract extraction status, unspecified eye; Z83.3 Family history of diabetes mellitus; Z82.49 Family history of ischemic heart disease and other diseases of the circulatory system
CPT/HCPCS: 36415; 71045; 74176; 80048; 80053; 80061; 80305; 81001; 82140; 82550; 82728; 82948; 83036; 83540; 83550; 83690; 83735; 83874; 84484; 85025; 85027; 85610; 85730; 93005; 99291; G0378; J1815; J3490; J7030

== ENCOUNTER 2019-06-29 09:00 | Inpatient (IN) | payer OTHER ==
[~2019-06-29] VITALS: Ht 172.7 cm; Wt 91.9 kg
[2019-06-29 09:24] LABS: BASOPHILS % (AUTO) 0.4 % (0.0-5.0); EOSINOPHILS % (AUTO) 1.9 % (0.0-8.0); HEMATOCRIT 32.1 % (42-54); LYMPHOCYTES % (AUTO) 7.8 % (21.0-51.0); MEAN CORPUSCULAR HEMOGLOBIN 34.9 pg (27.0-33.0); MEAN CORPUSCULAR HGB CONC 34.6 g/dL (32.0-36.0); MEAN CORPUSCULAR VOLUME 100.9 fL (79-99); MONOCYTES % (AUTO) 9.1 % (3.0-13.0); NEUTROPHILS % (AUTO) 80.4 % (40.0-77.0); PLATELET COUNT (AUTO) 133 K/uL (130-400); RED BLOOD CELL COUNT(AUTO) 3.18 MIL/uL (4.50-6.20); RED CELL DISTRIBUTION WIDTH 13.4 % (11.0-15.5)
[2019-06-29] MEDS ORDERED: ONDANSETRON HCL 4 MG/2 ML VIAL ONE (09:25)
[2019-06-29] MEDS ORDERED: MORPHINE SULFATE 4 MG/1ML SYG ONE (09:25)
[2019-06-29] MEDS ORDERED: SODIUM CHLORIDE 0.9% 500ML 500 ML IV ONE (09:26)
[2019-06-29 09:33] LABS: CREATININE 1.2 mg/dL (0.5-1.5); POTASSIUM 4.1 mmol/L (3.5-5.1)
[2019-06-29 09:36] LABS: INR 1.12 (0.85-1.15); PARTIAL THROMBOPLASTIN TIME 27.9 SEC (26.3-35.5)
[2019-06-29 09:37] LABS: ALBUMIN 2.4 g/dL (3.5-5.0); BILIRUBIN,TOTAL 1.2 mg/dL (0.2-1.0); TOTAL PROTEIN, SERUM 6.9 g/dL (6.0-8.3)
[2019-06-29] MEDS ORDERED: IOHEXOL-350 75 ML VIAL IV ONE (10:33)
[2019-06-29] MEDS ORDERED: HYDRALAZINE HCL 20 MG/ML VIAL IV PRN (13:15)
[2019-06-29] MEDS ORDERED: ACETAMINOPHEN 325 MG TAB PO PRN ×2 (13:15)
[2019-06-29] MEDS: METRONIDAZOLE 500 MG TABLET PO SCH ×2 (14:00→21:04)
[2019-06-29] MEDS ORDERED: METRONIDAZOLE 500 MG TABLET ONE (14:48)
[2019-06-29] MEDS ORDERED: FOLI0.8T PO (16:57)
[2019-06-29] MEDS ORDERED: ONDA4TAB10 PO (16:57)
[2019-06-29] MEDS ORDERED: METO-549 PO (16:57)
[2019-06-29] MEDS ORDERED: LACT10SO9 PO (16:57)
[2019-06-29] MEDS ORDERED: DICY10CA13 PO (16:57)
[2019-06-29] MEDS ORDERED: CYAN250014 PO (16:57)
[2019-06-29 17:08] VITALS: BP 148/69
[2019-06-29 19:00] VITALS: BP 137/62
[2019-06-29] MEDS: ZOSYN 3.375GM+NS 50ML 50 ML IV SCH (21:04)
--- NOTE | 2019-06-29 21:05 | NUR ---
MEDS SHIFT ASSESSMENT DONE, PLEASE REFER TO CHART.DUE MEDS ADMINISTERED, TOLERATED WELL. KEPT NPO EXCEPT MEDS. KEPT COMFORTALBE AND RESTED. CALL LIGHT WITHIN REACH. Addendum: 06/30/19 at 0050 by EFRAIN GOMEZ RN RN Amended: Links added.
[2019-06-29] MEDS: ONDANSETRON HCL 4 MG/2 ML VIAL IV PRN (21:15)
[2019-06-29] MEDS: MORPHINE SULFATE 2 MG/ML 1ML SYG IV PRN (21:19)
--- NOTE | 2019-06-29 21:58 | NUR ---
PAGED PAGED AJ, DELIVERY SUPERVISOR MUSIC LEADER FOR HOSPITALIST, FOR MED CLARIFICATION. MD ORDERED PROTONIX AND PT HAS ALLERGY TO MED. DELIVERY SUPERVISOR CALLED BACK AND REFERRED MED. NEW MED ORDER GIVEN, PLEASE REFER TO CPOE.
[2019-06-29 22:14] LABS: HEMATOCRIT 29.4 % (42-54)
[2019-06-30] VITALS (7 sets, daily range): BP systolic 91–144; BP diastolic 46–66
--- NOTE | 2019-06-30 02:00 | NUR ---
ROUNDS PT RESTING WELL, FAIRLY ASLEEP. NO DISTRESS NOTED. KEPT UNDISTURBED. KEPT NPO. WILL MONITOR PT.
[2019-06-30 04:50] LABS: BASOPHILS % (AUTO) 0.4 % (0.0-5.0); HEMATOCRIT 30.2 % (42-54); LYMPHOCYTES % (AUTO) 8.2 % (21.0-51.0); MEAN CORPUSCULAR HEMOGLOBIN 34.8 pg (27.0-33.0); MEAN CORPUSCULAR HGB CONC 33.8 g/dL (32.0-36.0); MEAN CORPUSCULAR VOLUME 103.1 fL (79-99); MONOCYTES % (AUTO) 10.7 % (3.0-13.0); NEUTROPHILS % (AUTO) 77.3 % (40.0-77.0); PLATELET COUNT (AUTO) 100 K/uL (130-400); RED BLOOD CELL COUNT(AUTO) 2.93 MIL/uL (4.50-6.20); RED CELL DISTRIBUTION WIDTH 13.4 % (11.0-15.5); WHITE BLOOD COUNT (AUTO) 5.3 K/uL (4.8-10.8)
--- NOTE | 2019-06-30 05:05 | NUR ---
MEDS PT ALREADY AWAKE, NO CONCERNS VERBALIZED. DUE IV ZOSYN HUNG. KEPT NPO EXCEPT MEDS FOR NOW. SPONGE TO MOISTEN MOUTH PROVIDED. FOR MORE CARE.
[2019-06-30] MEDS: ZOSYN 3.375GM+NS 50ML 50 ML IV SCH ×3 (05:07→21:08)
[2019-06-30 05:22] LABS: ALBUMIN 2.2 g/dL (3.5-5.0); BILIRUBIN,TOTAL 1.8 mg/dL (0.2-1.0); POTASSIUM 4.1 mmol/L (3.5-5.1); TOTAL PROTEIN, SERUM 6.2 g/dL (6.0-8.3)
[2019-06-30] MEDS: INSULIN HUMULIN R 100 UNIT/ML 3ML SQ SCH ×4 (05:48→21:08)
[2019-06-30] MEDS: SUCRALFATE 1 GM TABLET PO SCH ×3 (06:40→17:22)
[2019-06-30] MEDS ORDERED: INSULIN HUMULIN R 100 UNIT/ML 3ML SQ SCH (07:30)
[2019-06-30] MEDS ORDERED: PANTOPRAZOLE SODIUM 80 MG in SODIUM CHLORIDE 0.9% 100 ML IV SCH (09:00)
[2019-06-30] MEDS ORDERED: ERGOCALCIFEROL 1.25 MG PO SCH (09:00)
[2019-06-30] MEDS ORDERED: PANTOPRAZOLE 40 MG/VIAL IVP SCH (09:00)
[2019-06-30] MEDS: CYANOCOBALAMIN (VITAMIN B-12) 1,000 MCG TABLET PO SCH (09:21)
[2019-06-30] MEDS: MORPHINE SULFATE 2 MG/ML 1ML SYG IV PRN (09:21)
[2019-06-30] MEDS: RIFAXIMIN 550 MG TABLET PO SCH ×2 (09:21→21:08)
[2019-06-30] MEDS: MULTIVITS,STRESS FORMULA/ZINC 1 TABLET PO SCH (09:21)
[2019-06-30] MEDS: THIAMINE HCL 100 MG TABLET PO SCH (09:21)
[2019-06-30] MEDS: ONDANSETRON HCL 4 MG/2 ML VIAL IV PRN (09:22)
[2019-06-30] MEDS: METRONIDAZOLE 500 MG TABLET PO SCH ×3 (09:22→21:08)
[2019-06-30] MEDS: FOLIC ACID 1 MG TABLET PO SCH (09:22)
[2019-06-30] MEDS: LOSARTAN 50 MG TABLET PO SCH (09:22)
[2019-06-30] MEDS: SPIRONOLACTONE 25 MG TAB PO SCH (09:22)
[2019-06-30] MEDS: FUROSEMIDE 40 MG TABLET PO SCH (09:22)
[2019-06-30] MEDS: FAMOTIDINE/PF 20 MG/2 ML VIAL IV SCH ×2 (09:26→21:16)
[2019-06-30] MEDS ORDERED: PROPRANOLOL HCL 10 MG TAB PO PRN (12:00)
--- NOTE | 2019-06-30 14:08 | NUR ---
INITIAL Patient lives with spouse, Mitzy Paul, [phone]. No home services. DME: [facility], glucometer. Patient is able to complete ADL's independently and drives. PCP is Dr. Salvador but he is new to . Previous PCP is Dr. Winston Jean. Pharmacy is [facility] located in [place]. DCP is home. Addendum: 06/30/19 at 1409 by LEIDY RICARDO SS Amended: Links added.
--- NOTE | 2019-06-30 14:10 | NUR ---
Substance Abuse Patient admits to using cocaine. Patient states that when his cousins come over to his home he uses cocaine but does it only from time to time. He admits to using cocaine for "a couple of years". Patient states that he only experienced heart palpitations when he first used but no longer experiences that. SW provided patient with education on the negative effects of cocaine on mental and physical health. Patient was also provided with community resources for substance abuse counseling. Patient was receptive.
[2019-07-01 04:00] VITALS: BP_SYST 119; BP_DIAS 50; BP_DIAS 69
[2019-07-01] MEDS: ZOSYN 3.375GM+NS 50ML 50 ML IV SCH ×2 (04:16→13:05)
[2019-07-01] MEDS: INSULIN HUMULIN R 100 UNIT/ML 3ML SQ SCH ×3 (05:39→17:09)
[2019-07-01 05:59] LABS: BASOPHILS % (AUTO) 0.3 % (0.0-5.0); EOSINOPHILS % (AUTO) 3.2 % (0.0-8.0); HEMATOCRIT 25.5 % (42-54); LYMPHOCYTES % (AUTO) 8.6 % (21.0-51.0); MEAN CORPUSCULAR HEMOGLOBIN 34.9 pg (27.0-33.0); MEAN CORPUSCULAR HGB CONC 34.5 g/dL (32.0-36.0); MEAN CORPUSCULAR VOLUME 101.2 fL (79-99); MONOCYTES % (AUTO) 14.7 % (3.0-13.0); NEUTROPHILS % (AUTO) 72.9 % (40.0-77.0); PLATELET COUNT (AUTO) 74 K/uL (130-400); RED BLOOD CELL COUNT(AUTO) 2.52 MIL/uL (4.50-6.20); RED CELL DISTRIBUTION WIDTH 13.2 % (11.0-15.5); WHITE BLOOD COUNT (AUTO) 3.7 K/uL (4.8-10.8)
[2019-07-01 06:16] LABS: ALBUMIN 1.9 g/dL (3.5-5.0); BILIRUBIN,TOTAL 1.8 mg/dL (0.2-1.0); CREATININE 1.3 mg/dL (0.5-1.5); POTASSIUM 3.7 mmol/L (3.5-5.1); TOTAL PROTEIN, SERUM 5.4 g/dL (6.0-8.3)
[2019-07-01] MEDS: SUCRALFATE 1 GM TABLET PO SCH ×3 (06:40→17:08)
[2019-07-01 08:00] VITALS: BP 133/56
[2019-07-01] MEDS: RIFAXIMIN 550 MG TABLET PO SCH ×2 (08:43→21:42)
[2019-07-01] MEDS: METRONIDAZOLE 500 MG TABLET PO SCH ×4 (08:43→22:30)
[2019-07-01] MEDS: SPIRONOLACTONE 25 MG TAB PO SCH (08:43)
[2019-07-01] MEDS: FUROSEMIDE 40 MG TABLET PO SCH (08:43)
[2019-07-01] MEDS: CYANOCOBALAMIN (VITAMIN B-12) 1,000 MCG TABLET PO SCH (08:43)
[2019-07-01] MEDS: THIAMINE HCL 100 MG TABLET PO SCH (08:43)
[2019-07-01] MEDS: LOSARTAN 50 MG TABLET PO SCH (08:44)
[2019-07-01] MEDS: FOLIC ACID 1 MG TABLET PO SCH (08:44)
[2019-07-01] MEDS: FAMOTIDINE/PF 20 MG/2 ML VIAL IV SCH ×2 (08:44→21:42)
[2019-07-01] MEDS: MULTIVITS,STRESS FORMULA/ZINC 1 TABLET PO SCH (09:07)
[2019-07-01 11:00] VITALS: BP 115/66
[2019-07-01] MEDS ORDERED: IRON SUCROSE COMPLEX 300 MG in SODIUM CHLORIDE 0.9% 50 ML IV SCH (15:00)
[2019-07-01] MEDS ORDERED: EPOETIN ALFA 10,000 UNIT/ML VIAL SQ SCH (15:00)
[2019-07-01] MEDS ORDERED: COMPOUND IV MISC 1 EACH IVSOLN MISC PRN (15:30)
[2019-07-01] MEDS ORDERED: PHARMACY COMMUNICATION MISC SCH (15:30)
[2019-07-01 16:00] VITALS: BP 92/56
[2019-07-01 19:00] VITALS: BP 127/46
[2019-07-01] MEDS ORDERED: PANTOPRAZOLE 40 MG/VIAL IVP SCH (21:00)
[2019-07-01 23:00] VITALS: BP 99/47
[2019-07-02 03:00] VITALS: BP 106/51
[2019-07-02] MEDS: INSULIN HUMULIN R 100 UNIT/ML 3ML SQ SCH ×4 (05:26→15:42)
[2019-07-02 05:52] LABS: BASOPHILS % (AUTO) 0.7 % (0.0-5.0); HEMATOCRIT 29.9 % (42-54); LYMPHOCYTES % (AUTO) 12.5 % (21.0-51.0); MEAN CORPUSCULAR HEMOGLOBIN 34.8 pg (27.0-33.0); MEAN CORPUSCULAR HGB CONC 34.1 g/dL (32.0-36.0); MONOCYTES % (AUTO) 18.5 % (3.0-13.0); NEUTROPHILS % (AUTO) 64.8 % (40.0-77.0); PLATELET COUNT (AUTO) 104 K/uL (130-400); RED BLOOD CELL COUNT(AUTO) 2.93 MIL/uL (4.50-6.20); RED CELL DISTRIBUTION WIDTH 13.2 % (11.0-15.5); WHITE BLOOD COUNT (AUTO) 4.3 K/uL (4.8-10.8)
[2019-07-02] MEDS: METRONIDAZOLE 500 MG TABLET PO SCH ×3 (06:13→21:37)
[2019-07-02 06:14] LABS: ALBUMIN 2.3 g/dL (3.5-5.0); BILIRUBIN,TOTAL 1.3 mg/dL (0.2-1.0); CREATININE 1.4 mg/dL (0.5-1.5); CRP QUANTITATIVE 46.8 mg/L (0.00-9.0); POTASSIUM 4.5 mmol/L (3.5-5.1); TOTAL PROTEIN, SERUM 6.5 g/dL (6.0-8.3)
[2019-07-02 06:18] LABS: HEMOGLOBIN A1C 7.3 % (4.0-6.0)
[2019-07-02] MEDS: SUCRALFATE 1 GM TABLET PO SCH ×3 (06:50→16:38)
[2019-07-02] MEDS ORDERED: IRON SUCROSE COMPLEX IV SCH (07:00)
[2019-07-02] MEDS ORDERED: SODIUM CHLORIDE 0.9% IV SCH (07:00)
[2019-07-02 08:00] VITALS: BP 118/70
[2019-07-02] MEDS ORDERED: GLIMEPIRIDE 2 MG TABLET PO SCH (08:00)
[2019-07-02] MEDS ORDERED: LEVOFLOXACIN 500 MG TABLET PO SCH (09:00)
[2019-07-02] MEDS: FAMOTIDINE/PF 20 MG/2 ML VIAL IV SCH ×2 (09:00→21:37)
[2019-07-02] MEDS: MULTIVITS,STRESS FORMULA/ZINC 1 TABLET PO SCH (09:14)
[2019-07-02] MEDS: FOLIC ACID 1 MG TABLET PO SCH (09:14)
[2019-07-02] MEDS: THIAMINE HCL 100 MG TABLET PO SCH (09:14)
[2019-07-02] MEDS: RIFAXIMIN 550 MG TABLET PO SCH ×2 (09:14→21:36)
[2019-07-02] MEDS: LOSARTAN 50 MG TABLET PO SCH (09:14)
[2019-07-02] MEDS: FUROSEMIDE 40 MG TABLET PO SCH (09:15)
[2019-07-02] MEDS: CYANOCOBALAMIN (VITAMIN B-12) 1,000 MCG TABLET PO SCH (09:15)
[2019-07-02] MEDS: SPIRONOLACTONE 25 MG TAB PO SCH (09:15)
[2019-07-02 11:00] VITALS: BP 110/53
--- NOTE | 2019-07-02 11:05 | NUR ---
Patient discussed with primary RNNirali WHEELER notes reviewed. Addendum: 07/02/19 at 1106 by SUREKHA LALA RN CM Amended: Links added.
[2019-07-02 16:00] VITALS: BP 107/61
--- NOTE | 2019-07-02 17:34 | NUR ---
Attempted to contact Dr. Wallace at number on contact list without success. Will f/u as necessary.
[2019-07-02] MEDS ORDERED: LEVO500T2 PO (18:34)
[2019-07-02] MEDS ORDERED: METR500T PO (18:34)
[2019-07-02 19:00] VITALS: BP 108/55
== END 2019-07-02 22:00 | disposition home or self-care (01) | DRG 392 ==
LOC: EDH 09:00 → EDHIP 13:13 → 4CH 15:54
PROVIDERS: ADMIT Hospitalist; ATTEND Hospitalist
DX: A09 Infectious gastroenteritis and colitis, unspecified (principal); K92.2 Gastrointestinal hemorrhage, unspecified; R18.8 Other ascites; K70.30 Alcoholic cirrhosis of liver without ascites; D64.9 Anemia, unspecified; F14.90 Cocaine use, unspecified, uncomplicated; E11.9 Type 2 diabetes mellitus without complications; I10 Essential (primary) hypertension; Z98.49 Cataract extraction status, unspecified eye; Z83.3 Family history of diabetes mellitus; Z82.49 Family history of ischemic heart disease and other diseases of the circulatory system
CPT/HCPCS: 36415; 74177; 80053; 82270; 82948; 83036; 83690; 84145; 84484; 85014; 85018; 85025; 85610; 85730; 86140; 86677; 86850; 86900; 86901; 93005; C9113; G0378; J0885; J1756; J2270; J2405; J2543; J3490; J7040; Q9967

== ENCOUNTER 2020-10-17 11:58 | Observation (INO) | payer BC, MEDICARE ==
[~2020-10-17] VITALS: Ht 172.7 cm; Wt 81.3 kg
[~2020-10-17 11:58] MED LIST changes: +CYAN250014 PO; +DICY10CA13 PO; +FOLI0.8T3 PO; +LEVO500T2 PO; +METO-549 PO; +METR500T PO; +ONDA4TAB10 PO; -RANI150C4 PO
[2020-10-17 12:01] VITALS: BP 82/34
[2020-10-17 12:24] LABS: HEMATOCRIT 33.7 % (42-54); LYMPHOCYTES % (AUTO) 15.8 % (21.0-51.0); MEAN CORPUSCULAR HEMOGLOBIN 33.9 pg (27.0-33.0); MEAN CORPUSCULAR HGB CONC 33.8 g/dL (32.0-36.0); MEAN CORPUSCULAR VOLUME 100.3 fL (79-99); MONOCYTES % (AUTO) 14.7 % (3.0-13.0); NEUTROPHILS % (AUTO) 63.9 % (40.0-77.0); PLATELET COUNT (AUTO) 110 K/uL (130-400); RED BLOOD CELL COUNT(AUTO) 3.36 MIL/uL (4.50-6.20); RED CELL DISTRIBUTION WIDTH 14.7 % (11.0-15.5)
[2020-10-17 12:42] LABS: CARBON DIOXIDE 22 mmol/L (21-32); CHLORIDE 103 mmol/L (101-111); CREATININE 2.1 mg/dL (0.5-1.5); GLOMERULAR FILTR. RATE CALC 34 mL/min (>60); GLUCOSE,RANDOM 108 mg/dL (70-105); POTASSIUM 4.5 mmol/L (3.5-5.1); SODIUM SERUM 134 mmol/L (136-145); UREA NITROGEN, BLOOD 26 mg/dL (7-18)
[2020-10-17 12:56] LABS: ALANINE AMINOTRANSFERASE 37 U/L (12-78); ALBUMIN 2.3 g/dL (3.5-5.0); ASPARTATE AMINOTRANSFERASE 42 U/L (10-37); BILIRUBIN,TOTAL 1.4 mg/dL (0.2-1.0); CREATINE KINASE, TOTAL 90 U/L (21-232); MYOGLOBIN 85 ng/mL (10-92); TOTAL PROTEIN, SERUM 6.7 g/dL (6.0-8.3); TROPONIN I < 0.04 ng/mL (0.00-0.06)
[2020-10-17 13:20] VITALS: BP 90/48
[2020-10-17] MEDS ORDERED: ONDANSETRON 4MG INJ IVP PRN (16:30)
[2020-10-17] MEDS ORDERED: GLUCAGON 1MG KIT 1 MG ML IM PRN (17:00)
[2020-10-17] MEDS ORDERED: DEXTROSE 50%-WATER 50 ML DISP.SYRIN IV PRN (17:00)
[2020-10-17] MEDS ORDERED: 0.9% NACL 500ML IV.SOLN 500 ML IV ONE (18:00)
[2020-10-17 18:36] VITALS: BP 116/51
[2020-10-17] MEDS: FAMOTIDINE 20MG VIAL IV SCH (21:00)
[2020-10-17] MEDS: INSULIN HUMULIN R 100 UNIT/ML 3ML SQ SCH (21:00)
[2020-10-17 23:01] VITALS: BP 125/54
[2020-10-17 23:20] VITALS: BP 131/62
[2020-10-18] MEDS ORDERED: SUCR1TAB2 PO (00:08)
[2020-10-18] MEDS ORDERED: LACT10SO5 PO (00:08)
[2020-10-18] MEDS ORDERED: PROP10TA10 PO (00:08)
[2020-10-18 04:09] LABS: HEMATOCRIT 29.2 % (42-54); MEAN CORPUSCULAR HEMOGLOBIN 34.1 pg (27.0-33.0); MEAN CORPUSCULAR HGB CONC 34.2 g/dL (32.0-36.0); MEAN CORPUSCULAR VOLUME 99.7 fL (79-99); RED BLOOD CELL COUNT(AUTO) 2.93 MIL/uL (4.50-6.20); RED CELL DISTRIBUTION WIDTH 14.6 % (11.0-15.5); WHITE BLOOD COUNT (AUTO) 5.4 K/uL (4.8-10.8)
[2020-10-18 04:17] LABS: CREATININE 1.5 mg/dL (0.5-1.5); POTASSIUM 5.5 mmol/L (3.5-5.1)
[2020-10-18 04:27] VITALS: BP 103/56
[2020-10-18 04:31] LABS: THYROID STIMULATING HORMONE 0.95 uIU/mL (0.36-3.74); TOTAL PROTEIN, SERUM 6.1 g/dL (6.0-8.3)
[2020-10-18] MEDS: INSULIN HUMULIN R 100 UNIT/ML 3ML SQ SCH ×4 (06:10→21:23)
[2020-10-18] MEDS: LACTULOSE 20 GM/30 ML UDCUP PO SCH ×4 (06:17→23:16)
[2020-10-18] MEDS ORDERED: SODIUM BICARB 50MEQ 50ML VIAL IV ONE (07:30)
[2020-10-18] MEDS ORDERED: CALCIUM GLUC 1GM VIAL IV SCH (07:30)
[2020-10-18 08:00] VITALS: BP 123/53
[2020-10-18] MEDS ORDERED: CALCIUM GLUC 1GM VIAL 1 GM in 0.9%NACL 100ML 100 ML IV SCH (08:00)
[2020-10-18] MEDS ORDERED: NON-FORMULARY MEDICATION 1 EACH (Lactulose 10 GM) PO SCH (09:00)
[2020-10-18] MEDS: FAMOTIDINE 20MG VIAL IV SCH (09:18)
[2020-10-18] MEDS: PROPRANOLOL HCL 10 MG TAB PO SCH ×2 (09:19→21:20)
[2020-10-18] MEDS: RIFAXIMIN 550 MG TABLET PO SCH ×2 (09:19→21:20)
[2020-10-18] MEDS: SPIRONOLACTONE 25 MG TAB PO SCH (09:19)
[2020-10-18] MEDS: FOLIC ACID 1 MG TABLET PO SCH (09:19)
[2020-10-18] MEDS ORDERED: SODIUM BICARB 50MEQ 50ML VIAL 50 ML ONE (09:24)
[2020-10-18] MEDS ORDERED: SODIUM BICARB 50MEQ 50ML VIAL IV SCH (09:30)
[2020-10-18 12:00] VITALS: BP 115/53
[2020-10-18] MEDS ORDERED: KAYEXALATE 15GM/60ML PO SCH (13:17)
[2020-10-18 16:00] VITALS: BP 115/48
[2020-10-18 19:45] VITALS: BP 107/58
[2020-10-18 23:16] VITALS: BP 127/55
[2020-10-19 03:37] VITALS: BP 109/61
[2020-10-19 03:50] LABS: HEMATOCRIT 29.6 % (42-54); MEAN CORPUSCULAR HEMOGLOBIN 34.6 pg (27.0-33.0); MEAN CORPUSCULAR HGB CONC 34.1 g/dL (32.0-36.0); MEAN CORPUSCULAR VOLUME 101.4 fL (79-99); RED BLOOD CELL COUNT(AUTO) 2.92 MIL/uL (4.50-6.20); RED CELL DISTRIBUTION WIDTH 14.9 % (11.0-15.5); WHITE BLOOD COUNT (AUTO) 4.5 K/uL (4.8-10.8)
[2020-10-19 04:28] LABS: BILIRUBIN,TOTAL 0.8 mg/dL (0.2-1.0); CREATININE 1.6 mg/dL (0.5-1.5); POTASSIUM 4.9 mmol/L (3.5-5.1)
[2020-10-19] MEDS: LACTULOSE 20 GM/30 ML UDCUP PO SCH ×2 (06:42→13:03)
[2020-10-19] MEDS: INSULIN HUMULIN R 100 UNIT/ML 3ML SQ SCH ×2 (06:42→13:08)
[2020-10-19 08:43] VITALS: BP 120/63
[2020-10-19] MEDS: FAMOTIDINE 20MG VIAL IV SCH (08:49)
[2020-10-19] MEDS: RIFAXIMIN 550 MG TABLET PO SCH (08:49)
[2020-10-19] MEDS: PROPRANOLOL HCL 10 MG TAB PO SCH (08:49)
[2020-10-19] MEDS: SPIRONOLACTONE 25 MG TAB PO SCH (08:49)
[2020-10-19] MEDS: FOLIC ACID 1 MG TABLET PO SCH (08:49)
[2020-10-19 11:41] VITALS: BP 132/59
[2020-10-19] MEDS ORDERED: FURO-152 PO (15:42)
[2020-10-25] MEDS ORDERED: ERGOCALCIFEROL 1.25 MG PO SCH (06:30)
== END 2020-10-19 18:50 | disposition home or self-care (01) ==
LOC: EDH 11:58 → EDHIP 16:15 → 4BH 23:24
PROVIDERS: ADMIT Internal Medicine; ATTEND Internal Medicine
DX: R55 Syncope and collapse (principal); Z20.822 Contact with and (suspected) exposure to COVID-19; I10 Essential (primary) hypertension; K70.31 Alcoholic cirrhosis of liver with ascites; F10.10 Alcohol abuse, uncomplicated; H26.9 Unspecified cataract; I85.00 Esophageal varices without bleeding; E78.00 Pure hypercholesterolemia, unspecified; E11.36 Type 2 diabetes mellitus with diabetic cataract; I95.2 Hypotension due to drugs; Z68.30 Body mass index [BMI] 30.0-30.9, adult
CPT/HCPCS: 36415 ×3; 70450; 71045; 80053 ×3; 82140 ×2; 82550; 82948 ×7; 83874; 84132 ×2; 84443; 84484 ×4; 85025; 85027 ×2; 87635; 87804 ×2; 87880; 93005 ×2; 93880; 96365; 96372 ×2; 96375 ×2; 96376 ×2; 99285; C9803; G0378 ×51; J0610; J1815; J3490 ×4

== ENCOUNTER 2021-05-10 11:37 | Emergency (ER) | payer BC, MEDICARE ==
[~2021-05-10] VITALS: Ht 172.7 cm; Wt 70.8 kg
[~2021-05-10 11:37] MED LIST changes: -CYAN250014 PO; -DICY10CA13 PO; -ERGO1POW10 MC; +FURO-152 PO; -FURO40TA5 PO; +LACT10SO5 PO; -LACT10SO9 PO; -LEVO500T2 PO; -LOSA50TA64 PO; -METO-549 PO; -METR500T PO; -MULT-1258 PO; -ONDA4TAB10 PO; +PROP10TA10 PO; -SUCR1TAB2 PO; -THIA100T75 PO
[2021-05-10 12:05] LABS: BASOPHILS % (AUTO) 0.9 % (0.0-5.0); EOSINOPHILS % (AUTO) 5.5 % (0.0-8.0); LYMPHOCYTES % (AUTO) 11.5 % (21.0-51.0); MEAN CORPUSCULAR HEMOGLOBIN 35.6 pg (27.0-33.0); MEAN CORPUSCULAR HGB CONC 35.8 g/dL (32.0-36.0); MEAN CORPUSCULAR VOLUME 99.7 fL (79-99); MONOCYTES % (AUTO) 15.1 % (3.0-13.0); NEUTROPHILS % (AUTO) 66.8 % (40.0-77.0); PLATELET COUNT (AUTO) 104 K/uL (130-400); RED BLOOD CELL COUNT(AUTO) 3.31 MIL/uL (4.50-6.20); RED CELL DISTRIBUTION WIDTH 15.3 % (11.0-15.5); WHITE BLOOD COUNT (AUTO) 5.5 K/uL (4.8-10.8)
[2021-05-10 12:28] LABS: ALBUMIN 2.3 g/dL (3.5-5.0); CREATININE 1.1 mg/dL (0.5-1.5); POTASSIUM 3.4 mmol/L (3.5-5.1); TOTAL PROTEIN, SERUM 7.1 g/dL (6.0-8.3)
[2021-05-10 13:49] LABS: APPEARANCE,URINE Clear (CLEAR); BILIRUBIN,URINE Small (NEGATIVE); COLOR,URINE Dark Yellow (YELLOW); GLUCOSE, URINE (UA) Negative (NEGATIVE); KETONES,URINE Trace mg/dL (NEGATIVE); LEUKOCYTE ESTERASE ,URINE Trace (NEGATIVE); NITRATE,URINE Negative (NEGATIVE); OCCULT BLOOD,URINE Small (NEGATIVE); PROTEIN,URINE Trace mg/dL (NEGATIVE)
[2021-05-10] MEDS ORDERED: FAMOTIDINE 20MG VIAL IV ONE (14:00)
[2021-05-10] MEDS ORDERED: METRONIDAZOLE 500 MG TABLET PO SCH (14:00)
[2021-05-10] MEDS ORDERED: MAG/ALUM/SIMETH 30 ML UDCUP PO SCH (14:00)
[2021-05-10] MEDS ORDERED: LEVOFLOXACIN 500 MG TABLET PO SCH (14:00)
[2021-05-10] MEDS ORDERED: FAMOTIDINE 20MG VIAL IV SCH (14:00)
[2021-05-10 14:06] LABS: BACTERIA,URINE Rare /HPF (None Seen); RBC,URINE 0-1 /HPF (0-1); SQUAMOUS EPITHELIAL CELL,UR Rare /HPF (0-2); WBC,URINE 0-1 /HPF (0-1)
[2021-05-10] MEDS ORDERED: FAMOTIDINE 20MG TAB ONE (14:32)
[2021-05-10] MEDS ORDERED: DICY20TA2 PO (16:38)
[2021-05-10] MEDS ORDERED: METR375C2 PO (16:38)
[2021-05-10] MEDS ORDERED: LEVO500T90 PO (16:38)
[2021-05-10 16:56] VITALS: BP 126/72
== END 2021-05-10 16:55 | disposition home or self-care (01) ==
LOC: EDH 11:37
DX: K57.32 Diverticulitis of large intestine without perforation or abscess without bleeding (principal); J18.9 Pneumonia, unspecified organism; K74.60 Unspecified cirrhosis of liver; R16.1 Splenomegaly, not elsewhere classified; Z79.899 Other long term (current) drug therapy
CPT/HCPCS: 36415; 71045; 71250; 74176; 76705; 80053; 81001; 82140; 83690; 85025; 86140; 96374; 99285; J3490

== ENCOUNTER 2021-12-09 17:18 | Observation (INO) | payer BC, MEDICARE ==
[~2021-12-09] VITALS: Ht 170.2 cm; Wt 69.9 kg
[~2021-12-09 17:18] MED LIST changes: +DICY20TA2 PO; +LEVO-70 PO; +METR375C2 PO
[2021-12-09] MEDS ORDERED: SPIR50TA5 PO (17:45)
[2021-12-09] MEDS ORDERED: FURO40TA7 PO (17:45)
[2021-12-09] MEDS ORDERED: NAPR-1196 PO (17:45)
[2021-12-09] MEDS ORDERED: PRED20TA3 PO (17:45)
[2021-12-09] MEDS ORDERED: TRAM50TA4 PO (17:45)
[2021-12-09 17:50] LABS: BASOPHILS % (AUTO) 0.1 % (0.0-5.0); EOSINOPHILS % (AUTO) 0.1 % (0.0-8.0); HEMATOCRIT 35.4 % (42-54); LYMPHOCYTES % (AUTO) 2.5 % (21.0-51.0); MEAN CORPUSCULAR HEMOGLOBIN 36.6 pg (27.0-33.0); MEAN CORPUSCULAR VOLUME 104.4 fL (79-99); MONOCYTES % (AUTO) 7.6 % (3.0-13.0); NEUTROPHILS % (AUTO) 88.7 % (40.0-77.0); PLATELET COUNT (AUTO) 122 K/uL (130-400); RED BLOOD CELL COUNT(AUTO) 3.39 MIL/uL (4.50-6.20); WHITE BLOOD COUNT (AUTO) 13.6 K/uL (4.8-10.8)
[2021-12-09 18:05] LABS: ALBUMIN 2.4 g/dL (3.5-5.0); CREATININE 1.4 mg/dL (0.5-1.5); POTASSIUM 4.6 mmol/L (3.5-5.1); TOTAL PROTEIN, SERUM 7.5 g/dL (6.0-8.3)
[2021-12-09] MEDS ORDERED: INSULIN HUMULIN R 100 UNIT/ML 3ML IV STA (18:39)
[2021-12-09] MEDS ORDERED: 0.9%NACL 1000ML 1,000 ML IV ONE (19:00)
[2021-12-09] MEDS ORDERED: INSULIN HUMULIN R 100 UNIT/ML 3ML SQ ONE (19:30)
[2021-12-09] MEDS ORDERED: VANCOMYCIN HCL 1.5 GM/250 ML BAG IV SCH (19:30)
[2021-12-09] MEDS ORDERED: ZOSYN 3.375GM +NS 50ML IV ONE (19:30)
[2021-12-09] MEDS ORDERED: VANCOMYCIN 1.5 GM/250 ML BAG 250 ML IV SCH (20:00)
[2021-12-09 20:07] LABS: APPEARANCE,URINE CLEAR (CLEAR); BILIRUBIN,URINE NEGATIVE (NEGATIVE); COLOR,URINE YELLOW (YELLOW); GLUCOSE, URINE (UA) >=1000 mg/dL (NEGATIVE); KETONES,URINE NEGATIVE (NEGATIVE); LEUKOCYTE ESTERASE ,URINE NEGATIVE (NEGATIVE); NITRATE,URINE NEGATIVE (NEGATIVE); OCCULT BLOOD,URINE TRACE-INTACT (NEGATIVE); PROTEIN,URINE NEGATIVE (NEGATIVE); UROBILINOGEN,URINE 0.2 mg/dL (0.2-1.0)
[2021-12-09 20:15] LABS: BACTERIA,URINE None Seen /HPF (None Seen); SQUAMOUS EPITHELIAL CELL,UR Rare /HPF (0-2); WBC,URINE 0-1 /HPF (0-1)
[2021-12-09 20:51] LABS: INR 1.23 (0.85-1.15); PROTHROMBIN TIME 13.2 SEC (9.6-11.6)
[2021-12-09 20:52] LABS: PARTIAL THROMBOPLASTIN TIME 32.3 SEC (26.3-35.5)
[2021-12-09] MEDS: ZOSYN 3.375GM+NS 50ML 50 ML IV SCH (21:00)
[2021-12-09] MEDS ORDERED: VANCOMYCIN PROTOCOL PER PHARMACY IV PRN (21:00)
[2021-12-09] MEDS ORDERED: MORPHINE 2 MG SYG IVP PRN (21:00)
[2021-12-09] MEDS ORDERED: INSULIN HUMULIN R 100 UNIT/ML 3ML SQ SCH (21:00)
[2021-12-09] MEDS ORDERED: LACTULOSE 20 GM/30 ML UDCUP PO PRN (21:00)
[2021-12-09] MEDS ORDERED: ONDANSETRON 4MG INJ IV PRN (21:00)
[2021-12-09] MEDS: VANCOMYCIN 1G/250ML KIT 250 ML IV SCH (21:00)
[2021-12-09] MEDS: FAMOTIDINE 20MG TAB PO SCH (22:00)
[2021-12-10 02:55] VITALS: BP 145/73
[2021-12-10] MEDS: ZOSYN 3.375GM+NS 50ML 50 ML IV SCH ×2 (05:00→13:02)
[2021-12-10 06:30] LABS: EOSINOPHILS % (AUTO) 1.6 % (0.0-8.0); HEMATOCRIT 28.1 % (42-54); LYMPHOCYTES % (AUTO) 5.6 % (21.0-51.0); MEAN CORPUSCULAR HEMOGLOBIN 36.4 pg (27.0-33.0); MEAN CORPUSCULAR HGB CONC 35.2 g/dL (32.0-36.0); MEAN CORPUSCULAR VOLUME 103.3 fL (79-99); MONOCYTES % (AUTO) 9.3 % (3.0-13.0); NEUTROPHILS % (AUTO) 82.9 % (40.0-77.0); PLATELET COUNT (AUTO) 59 K/uL (130-400); RED BLOOD CELL COUNT(AUTO) 2.72 MIL/uL (4.50-6.20); WHITE BLOOD COUNT (AUTO) 6.2 K/uL (4.8-10.8)
[2021-12-10 06:40] LABS: ALBUMIN 1.7 g/dL (3.5-5.0); CREATININE 1.2 mg/dL (0.5-1.5); POTASSIUM 4.7 mmol/L (3.5-5.1); TOTAL PROTEIN, SERUM 5.6 g/dL (6.0-8.3)
[2021-12-10 07:52] VITALS: BP 126/52
[2021-12-10] MEDS ORDERED: SPIRONOLACTONE 25 MG TAB PO SCH (09:00)
[2021-12-10] MEDS ORDERED: FUROSEMIDE 40 MG TABLET PO SCH (09:00)
[2021-12-10] MEDS ORDERED: FOLIC ACID 1 MG TABLET PO SCH (09:00)
[2021-12-10] MEDS ORDERED: RIFAXIMIN 550 MG TABLET PO SCH (09:00)
[2021-12-10 09:08] LABS: HEMOGLOBIN A1C 7.9 % (4.0-6.0)
[2021-12-10] MEDS ORDERED: 0.9% NACL 250ML 250 ML ONE (10:01)
[2021-12-10] MEDS: VANCOMYCIN 1G/250ML KIT 250 ML IV SCH (10:10)
[2021-12-10] MEDS: FAMOTIDINE 20MG TAB PO SCH (10:11)
[2021-12-10 11:28] LABS: HEMATOCRIT 29.4 % (42-54)
[2021-12-10] MEDS ORDERED: INSULIN HUMULIN R 100 UNIT/ML 3ML SQ SCH (11:30)
[2021-12-10 11:33] VITALS: BP 109/52
[2021-12-10] MEDS ORDERED: METF-444 PO (12:33)
[2021-12-10] MEDS ORDERED: LEVO-70 PO (12:52)
== END 2021-12-10 15:45 | disposition home or self-care (01) ==
LOC: EDH 17:18 → INTOOBSV 20:32 → EDHIP 20:32 → 3AH 12-10 03:00
PROVIDERS: ADMIT Hospitalist; ATTEND Hospitalist
DX: S30.1XXA Contusion of abdominal wall, initial encounter (principal); L03.311 Cellulitis of abdominal wall; L03.319 Cellulitis of trunk, unspecified; M54.50 Low back pain, unspecified; D69.6 Thrombocytopenia, unspecified; E11.65 Type 2 diabetes mellitus with hyperglycemia; E87.1 Hypo-osmolality and hyponatremia; K70.31 Alcoholic cirrhosis of liver with ascites; I85.00 Esophageal varices without bleeding; M10.9 Gout, unspecified; I10 Essential (primary) hypertension; K42.9 Umbilical hernia without obstruction or gangrene; S70.02XA Contusion of left hip, initial encounter; K80.20 Calculus of gallbladder without cholecystitis without obstruction; N20.0 Calculus of kidney; K57.30 Diverticulosis of large intestine without perforation or abscess without bleeding; Z79.84 Long term (current) use of oral hypoglycemic drugs; Z90.49 Acquired absence of other specified parts of digestive tract; Z79.899 Other long term (current) drug therapy; Z98.890 Other specified postprocedural states; X58.XXXA Exposure to other specified factors, initial encounter; Y93.89 Activity, other specified; Y92.89 Other specified places as the place of occurrence of the external cause; Y99.8 Other external cause status
CPT/HCPCS: 96372 ×2; 96361; 96365; 96366 ×2; 96375 ×2; 96368; 99285; 82947; 80053 ×2; 85025 ×2; 85610; 85730; 87040 ×2; 82948 ×3; 86140; 81001; 36415 ×2; 72131; 74176; 83036; 85014; 85018; J7030; J2543 ×2; J1815 ×3; J3370 ×2; G0378 ×5; J7050

== ENCOUNTER 2022-01-31 03:09 | Emergency (ER) | payer BC, MEDICARE ==
[~2022-01-31] VITALS: Ht 162.6 cm; Wt 79.8 kg
[~2022-01-31 03:09] MED LIST changes: +CYAN100099 PO; -DICY20TA2 PO; -FAMO20TA8 PO; -FOLI0.8T3 PO; -FURO-152 PO; +FURO40TA5 PO; -GLIM2TAB30 PO; -LACT10SO5 PO; +LACT10SO9 PO; -LEVO-70 PO; +METF-444 PO; -METR375C2 PO; +MULT-1259 PO; +OMEP20TA20 PO; -PROP10TA10 PO; +THIA100T78 PO
[2022-01-31] MEDS ORDERED: HYDROCODONE/ACETAMINOPHEN 10/325 MG TAB PO ONE (04:00)
[2022-01-31] MEDS ORDERED: ACET-2079 PO (04:49)
[2022-01-31 04:53] VITALS: BP 134/73
== END 2022-01-31 04:58 | disposition home or self-care (01) ==
LOC: EDH 03:09
DX: R18.8 Other ascites (principal); I10 Essential (primary) hypertension; K21.9 Gastro-esophageal reflux disease without esophagitis; E11.9 Type 2 diabetes mellitus without complications; Z79.84 Long term (current) use of oral hypoglycemic drugs
CPT/HCPCS: 71045

== ENCOUNTER → 2022-03-20 | Outpatient (CLI) | payer BC, MEDICARE ==
[~2022-03-20] MED LIST changes: +ACET-2079 PO
== END | disposition home or self-care (01) ==
LOC: RAH 12:31
PROVIDERS: ATTEND Family Medicine
DX: K43.9 Ventral hernia without obstruction or gangrene (principal); K42.9 Umbilical hernia without obstruction or gangrene
CPT/HCPCS: 74176

== ENCOUNTER 2022-04-09 02:17 | Emergency (ER) | payer BC, MEDICARE ==
[~2022-04-09] VITALS: Ht 172.7 cm; Wt 78.9 kg
[2022-04-09 02:20] VITALS: BP 139/71
[2022-04-09 03:39] LABS: BASOPHILS % (AUTO) 0.9 % (0.0-5.0); EOSINOPHILS % (AUTO) 3.7 % (0.0-8.0); HEMATOCRIT 28.6 % (42-54); LYMPHOCYTES % (AUTO) 8.2 % (21.0-51.0); MEAN CORPUSCULAR HEMOGLOBIN 35.5 pg (27.0-33.0); MEAN CORPUSCULAR HGB CONC 34.3 g/dL (32.0-36.0); MEAN CORPUSCULAR VOLUME 103.6 fL (79-99); MONOCYTES % (AUTO) 10.5 % (3.0-13.0); NEUTROPHILS % (AUTO) 76.1 % (40.0-77.0); PLATELET COUNT (AUTO) 90 K/uL (130-400); RED BLOOD CELL COUNT(AUTO) 2.76 MIL/uL (4.50-6.20); RED CELL DISTRIBUTION WIDTH 14.6 % (11.0-15.5); WHITE BLOOD COUNT (AUTO) 6.6 K/uL (4.8-10.8)
[2022-04-09 03:51] LABS: ALBUMIN 2.2 g/dL (3.5-5.0); CREATININE 1.2 mg/dL (0.5-1.5); MAGNESIUM 1.9 mg/dL (1.80-2.40); POTASSIUM 3.9 mmol/L (3.5-5.1); TOTAL PROTEIN, SERUM 6.7 g/dL (6.0-8.3)
[2022-04-09 03:52] LABS: APPEARANCE,URINE CLEAR (CLEAR); BILIRUBIN,URINE NEGATIVE (NEGATIVE); COLOR,URINE LIGHT-YELLOW (YELLOW); GLUCOSE, URINE (UA) NEGATIVE (NEGATIVE); KETONES,URINE NEGATIVE (NEGATIVE); LEUKOCYTE ESTERASE ,URINE NEGATIVE Leu/uL (NEGATIVE); NITRATE,URINE NEGATIVE (NEGATIVE); OCCULT BLOOD,URINE NEGATIVE (NEGATIVE); PROTEIN,URINE NEGATIVE (NEGATIVE); UROBILINOGEN,URINE 0.2 mg/dL (0.2-1.0)
[2022-04-09 03:56] LABS: B-TYPE NATRIURETIC PEPTIDE 186 pg/mL (0-100)
== END 2022-04-09 04:14 | disposition home or self-care (01) ==
LOC: EDH 02:17
DX: R17 Unspecified jaundice (principal); N62 Hypertrophy of breast; I51.9 Heart disease, unspecified; Z79.84 Long term (current) use of oral hypoglycemic drugs; Z79.899 Other long term (current) drug therapy
CPT/HCPCS: 36415; 80053; 81003; 83735; 83880; 84484; 85025

== ENCOUNTER 2022-06-10 06:52 | Emergency (ER) | payer BC, OTHER ==
[2022-06-10 07:54] LABS: BASOPHILS % (AUTO) 0.4 % (0.0-5.0); EOSINOPHILS % (AUTO) 0.9 % (0.0-8.0); HEMATOCRIT 28.5 % (42-54); LYMPHOCYTES % (AUTO) 4.4 % (21.0-51.0); MEAN CORPUSCULAR HEMOGLOBIN 35.2 pg (27.0-33.0); MEAN CORPUSCULAR HGB CONC 34.7 g/dL (32.0-36.0); MEAN CORPUSCULAR VOLUME 101.4 fL (79-99); MONOCYTES % (AUTO) 10.1 % (3.0-13.0); NEUTROPHILS % (AUTO) 83.5 % (40.0-77.0); PLATELET COUNT (AUTO) 117 K/uL (130-400); RED BLOOD CELL COUNT(AUTO) 2.81 MIL/uL (4.50-6.20); WHITE BLOOD COUNT (AUTO) 6.8 K/uL (4.8-10.8)
[2022-06-10 08:18] LABS: ALBUMIN 1.9 g/dL (3.5-5.0); CREATININE 1.4 mg/dL (0.5-1.5); POTASSIUM 4.7 mmol/L (3.5-5.1); TOTAL PROTEIN, SERUM 6.7 g/dL (6.0-8.3)
[2022-06-10 08:50] VITALS: BP 142/70
== END 2022-06-10 09:08 | disposition home or self-care (01) ==
LOC: EDH 06:52
DX: E16.2 Hypoglycemia, unspecified (principal); Z79.899 Other long term (current) drug therapy; Z98.890 Other specified postprocedural states; Z88.8 Allergy status to other drugs, medicaments and biological substances; Z90.89 Acquired absence of other organs
CPT/HCPCS: 36415; 80053; 82140; 82948; 85025

== ENCOUNTER 2022-06-11 14:57 | Emergency (ER) | payer BC, OTHER ==
[~2022-06-11] VITALS: Ht 172.7 cm; Wt 72.6 kg
[2022-06-11 16:16] LABS: HEMATOCRIT 29.8 % (42-54); MEAN CORPUSCULAR HEMOGLOBIN 35.8 pg (27.0-33.0); MEAN CORPUSCULAR HGB CONC 34.6 g/dL (32.0-36.0); MEAN CORPUSCULAR VOLUME 103.5 fL (79-99); RED BLOOD CELL COUNT(AUTO) 2.88 MIL/uL (4.50-6.20); RED CELL DISTRIBUTION WIDTH 19.3 % (11.0-15.5); WHITE BLOOD COUNT (AUTO) 8.9 K/uL (4.8-10.8)
[2022-06-11 16:22] LABS: CREATININE 1.5 mg/dL (0.5-1.5); POTASSIUM 4.2 mmol/L (3.5-5.1)
[2022-06-11 16:45] LABS: ALBUMIN 1.9 g/dL (3.5-5.0)
[2022-06-11 17:18] LABS: TOTAL PROTEIN, SERUM 6.7 g/dL (6.0-8.3)
[2022-06-11 19:50] VITALS: BP 137/75
== END 2022-06-11 19:53 | disposition home or self-care (01) ==
LOC: EDH 14:57
DX: E16.2 Hypoglycemia, unspecified (principal); Z79.84 Long term (current) use of oral hypoglycemic drugs; Z79.899 Other long term (current) drug therapy; Z88.8 Allergy status to other drugs, medicaments and biological substances
CPT/HCPCS: 29505; 36415; 70450; 72125; 73562; 80053; 82140; 82948; 83690; 85027; 93005

== ENCOUNTER 2022-06-16 17:39 | Inpatient (IN) | payer BC, OTHER ==
[~2022-06-16] VITALS: Ht 172.7 cm; Wt 90.4 kg
[~2022-06-16 17:39] MED LIST changes: +ETOMIDATE 20MG VIAL IVP ONE; +ROCURONIUM BROMIDE 10MG/1ML 5ML VL IV ONE
[2022-06-16 18:09] LABS: BASOPHILS % (AUTO) 0.2 % (0.0-5.0); EOSINOPHILS % (AUTO) 1.4 % (0.0-8.0); HEMATOCRIT 32.1 % (42-54); LYMPHOCYTES % (AUTO) 2.2 % (21.0-51.0); MEAN CORPUSCULAR HEMOGLOBIN 35.7 pg (27.0-33.0); MEAN CORPUSCULAR HGB CONC 34.6 g/dL (32.0-36.0); MEAN CORPUSCULAR VOLUME 103.2 fL (79-99); MONOCYTES % (AUTO) 10.1 % (3.0-13.0); NEUTROPHILS % (AUTO) 84.9 % (40.0-77.0); PLATELET COUNT (AUTO) 98 K/uL (130-400); RED BLOOD CELL COUNT(AUTO) 3.11 MIL/uL (4.50-6.20); RED CELL DISTRIBUTION WIDTH 19.1 % (11.0-15.5); WHITE BLOOD COUNT (AUTO) 6.5 K/uL (4.8-10.8)
[2022-06-16 18:21] LABS: CREATININE 2.2 mg/dL (0.5-1.5)
[2022-06-16 18:44] LABS: ALBUMIN 1.8 g/dL (3.5-5.0); TOTAL PROTEIN, SERUM 6.7 g/dL (6.0-8.3)
[2022-06-16] MEDS ORDERED: DEXTROSE 50%-WATER 50 ML DISP.SYRIN IV ONE ×2 (21:14→21:30)
[2022-06-16] MEDS ORDERED: GLUCAGON 1MG KIT 1 MG ML IM PRN (21:30)
[2022-06-17] VITALS (7 sets, daily range): BP systolic 105–143; BP diastolic 46–73
[2022-06-17] MEDS: DEXTROSE 10%-WATER 1,000 ML IV SCH ×2 (00:07→23:15)
[2022-06-17] MEDS ORDERED: HYDROCODONE/ACETAMINOPHEN 5/325 MG TAB PO PRN (01:00)
[2022-06-17] MEDS: LACTATED RINGERS 1000ML 1,000 ML IV SCH ×2 (01:00→01:39)
[2022-06-17] MEDS ORDERED: HYDROMORPHONE 1 MG INJ IV PRN (01:00)
[2022-06-17] MEDS ORDERED: ONDANSETRON 4MG INJ IV PRN (01:00)
[2022-06-17] MEDS: DEXTROSE 50%-WATER 50 ML DISP.SYRIN IV PRN ×2 (02:18→04:25)
[2022-06-17 05:06] LABS: EOSINOPHILS % (AUTO) 0.5 % (0.0-8.0); HEMATOCRIT 27.9 % (42-54); LYMPHOCYTES % (AUTO) 1.4 % (21.0-51.0); MEAN CORPUSCULAR HEMOGLOBIN 35.7 pg (27.0-33.0); MEAN CORPUSCULAR HGB CONC 35.8 g/dL (32.0-36.0); MEAN CORPUSCULAR VOLUME 99.6 fL (79-99); MONOCYTES % (AUTO) 6.6 % (3.0-13.0); PLATELET COUNT (AUTO) 78 K/uL (130-400); RED CELL DISTRIBUTION WIDTH 18.6 % (11.0-15.5); WHITE BLOOD COUNT (AUTO) 6.4 K/uL (4.8-10.8)
[2022-06-17 05:17] LABS: INR 2.21 (0.85-1.15)
[2022-06-17 05:19] LABS: PARTIAL THROMBOPLASTIN TIME 57.7 SEC (26.3-35.5)
[2022-06-17 05:29] LABS: ALBUMIN 1.5 g/dL (3.5-5.0); B-TYPE NATRIURETIC PEPTIDE 92 pg/mL (0-100); CREATININE 2.2 mg/dL (0.5-1.5); MAGNESIUM 1.9 mg/dL (1.80-2.40); PHOSPHORUS 3.3 mg/dL (2.5-4.9); POTASSIUM 4.2 mmol/L (3.5-5.1); TOTAL PROTEIN, SERUM 5.8 g/dL (6.0-8.3)
[2022-06-17 05:36] LABS: % IRON SATURATION 31.8 % (30-44)
[2022-06-17] MEDS ORDERED: SODIUM BICARBONATE 650 MG TAB PO SCH (09:30)
[2022-06-17] MEDS: LACTULOSE 20 GM/30 ML UDCUP PO SCH ×3 (10:00→20:05)
[2022-06-17 10:18] LABS: ABG BASE EXCESS -9.2 mmol/L (-2.0-3.0); ABG HCO3 12.6 mmol/L (21.0-28.0); ABG OXYGEN SATURATION 97.6 % (95.0-99.0); ABG PCO2 20 mmHg (35-48)
[2022-06-17] MEDS ORDERED: 0.9%NACL 50ML IV SCH (11:00)
[2022-06-17] MEDS: ZOSYN 3.375GM +NS 50ML IVPB SCH ×2 (11:32→20:05)
[2022-06-17] MEDS: FAMOTIDINE 20MG VIAL IV SCH (14:09)
[2022-06-17] MEDS ORDERED: ISOS10TA8 PO (14:31)
[2022-06-17] MEDS ORDERED: RIFA550T PO (14:31)
[2022-06-17] MEDS ORDERED: FURO40TA5 PO (14:31)
[2022-06-17] MEDS ORDERED: OMEP20CA12 PO (14:31)
[2022-06-17] MEDS ORDERED: LEVO5TAB13 PO (14:31)
[2022-06-17] MEDS ORDERED: FOLI0.8T3 PO (14:31)
[2022-06-17] MEDS ORDERED: METR-172 PO (14:31)
[2022-06-17] MEDS ORDERED: CYAN-35 PO (14:31)
[2022-06-17] MEDS ORDERED: MV-M-9 PO (14:31)
[2022-06-17] MEDS ORDERED: THIA100T75 PO (14:31)
[2022-06-17] MEDS ORDERED: SPIR50TA5 PO (14:31)
[2022-06-17] MEDS ORDERED: LACT10SO9 PO (14:31)
[2022-06-17] MEDS ORDERED: GLIP5TAB11 PO (14:31)
[2022-06-17] MEDS: SODIUM BICARBONATE 650 MG TAB PO SCH (20:06)
[2022-06-17] MEDS ORDERED: IRON SUCROSE COMPLEX 300 MG in 0.9% NACL 250ML 250 ML IV SCH (21:00)
[2022-06-18 00:35] LABS: APPEARANCE,URINE CLOUDY (CLEAR); BILIRUBIN,URINE 10 mg/dL (NEGATIVE); COLOR,URINE DARK-YELLOW (YELLOW); GLUCOSE, URINE (UA) NEGATIVE (NEGATIVE); KETONES,URINE NEGATIVE (NEGATIVE); LEUKOCYTE ESTERASE ,URINE NEGATIVE Leu/uL (NEGATIVE); NITRATE,URINE NEGATIVE (NEGATIVE); PH,URINE 5.5 (5.0-8.0); PROTEIN,URINE 10 mg/dL (NEGATIVE); UROBILINOGEN,URINE 0.2 mg/dL (0.2-1.0)
[2022-06-18 00:38] LABS: BACTERIA,URINE RARE /HPF (None Seen); MUCUS,URINE RARE LPF (None Seen); SQUAMOUS EPITHELIAL CELL,UR FEW /HPF (0-2)
[2022-06-18 03:08] VITALS: BP 129/58
[2022-06-18 05:14] LABS: BASOPHILS % (AUTO) 0.2 % (0.0-5.0); EOSINOPHILS % (AUTO) 1.8 % (0.0-8.0); HEMATOCRIT 27.1 % (42-54); LYMPHOCYTES % (AUTO) 5.6 % (21.0-51.0); MEAN CORPUSCULAR HEMOGLOBIN 35.8 pg (27.0-33.0); MEAN CORPUSCULAR HGB CONC 35.1 g/dL (32.0-36.0); MEAN CORPUSCULAR VOLUME 102.3 fL (79-99); MONOCYTES % (AUTO) 11.1 % (3.0-13.0); NEUTROPHILS % (AUTO) 80.6 % (40.0-77.0); PLATELET COUNT (AUTO) 77 K/uL (130-400); RED BLOOD CELL COUNT(AUTO) 2.65 MIL/uL (4.50-6.20); RED CELL DISTRIBUTION WIDTH 18.5 % (11.0-15.5); WHITE BLOOD COUNT (AUTO) 5.5 K/uL (4.8-10.8)
[2022-06-18 05:45] LABS: ALBUMIN 1.4 g/dL (3.5-5.0); CREATININE 2.5 mg/dL (0.5-1.5); POTASSIUM 4.3 mmol/L (3.5-5.1); TOTAL PROTEIN, SERUM 5.7 g/dL (6.0-8.3)
[2022-06-18 08:00] VITALS: BP 129/68
[2022-06-18] MEDS ORDERED: ENOXAPARIN SODIUM 30 MG/0.3 ML SQ SCH (09:00)
[2022-06-18] MEDS: HYDROCORTISONE SOD SUCCINATE 100 MG/2 ML VIAL IV SCH ×3 (09:00→20:07)
[2022-06-18] MEDS: LACTULOSE 20 GM/30 ML UDCUP PO SCH ×2 (09:17→20:07)
[2022-06-18] MEDS: ZOSYN 3.375GM +NS 50ML IVPB SCH ×2 (09:18→20:07)
[2022-06-18] MEDS: FAMOTIDINE 20MG VIAL IV SCH (09:19)
[2022-06-18] MEDS: SODIUM BICARBONATE 650 MG TAB PO SCH ×2 (09:23→20:07)
[2022-06-18] MEDS ORDERED: ALBUMIN (HUMAN) 25% 50 ML IV SCH ×2 (10:00)
[2022-06-18 11:40] VITALS: BP 141/68
[2022-06-18 16:00] VITALS: BP 120/65
[2022-06-18] MEDS ORDERED: PHARMACY COMMUNICATION MISC SCH ×2 (19:30→21:00)
[2022-06-18 20:00] VITALS: BP 123/72
[2022-06-18] MEDS: DEXTROSE 10%-WATER 1,000 ML IV SCH (22:23)
[2022-06-19] VITALS: BP 128/65
[2022-06-19] MEDS ORDERED: DEXTROSE 50%-WATER 50 ML DISP.SYRIN IV PRN (01:30)
[2022-06-19 04:00] VITALS: BP 130/71
[2022-06-19 05:53] LABS: BASOPHILS % (AUTO) 0.2 % (0.0-5.0); HEMATOCRIT 27.6 % (42-54); LYMPHOCYTES % (AUTO) 6.6 % (21.0-51.0); MEAN CORPUSCULAR HEMOGLOBIN 35.7 pg (27.0-33.0); MEAN CORPUSCULAR HGB CONC 34.4 g/dL (32.0-36.0); MEAN CORPUSCULAR VOLUME 103.8 fL (79-99); MONOCYTES % (AUTO) 4.5 % (3.0-13.0); NEUTROPHILS % (AUTO) 88.1 % (40.0-77.0); PLATELET COUNT (AUTO) 59 K/uL (130-400); RED BLOOD CELL COUNT(AUTO) 2.66 MIL/uL (4.50-6.20); RED CELL DISTRIBUTION WIDTH 18.5 % (11.0-15.5); WHITE BLOOD COUNT (AUTO) 4.7 K/uL (4.8-10.8)
[2022-06-19 06:04] LABS: CREATININE 2.2 mg/dL (0.5-1.5); PHOSPHORUS 4.5 mg/dL (2.5-4.9); POTASSIUM 4.7 mmol/L (3.5-5.1)
[2022-06-19 06:19] LABS: PLATELET MORPHOLOGY COMMENT DECREASED
[2022-06-19 08:00] VITALS: BP 119/63
[2022-06-19] MEDS: SODIUM BICARBONATE 650 MG TAB PO SCH ×2 (08:47→19:53)
[2022-06-19] MEDS: HYDROCORTISONE SOD SUCCINATE 100 MG/2 ML VIAL IV SCH (08:47)
[2022-06-19] MEDS: LACTULOSE 20 GM/30 ML UDCUP PO SCH ×2 (08:47→19:54)
[2022-06-19] MEDS: ZOSYN 3.375GM +NS 50ML IVPB SCH ×2 (08:47→19:54)
[2022-06-19] MEDS: FAMOTIDINE 20MG VIAL IV SCH (08:47)
[2022-06-19] MEDS: ALBUMIN (HUMAN) 25% 50 ML IV SCH (11:44)
[2022-06-19 12:00] VITALS: BP 130/61
[2022-06-19 16:00] VITALS: BP 118/58
[2022-06-19] MEDS: HYDROCORTISONE 20 MG TABLET PO SCH (19:53)
[2022-06-19 20:00] VITALS: BP 121/64
[2022-06-19] MEDS ORDERED: RIFAXIMIN 200 MG TABLET PO SCH (21:00)
[2022-06-20] VITALS (37 sets, daily range): BP systolic 107–139; BP diastolic 42–98
[2022-06-20 05:57] LABS: BASOPHILS % (AUTO) 0.1 % (0.0-5.0); HEMATOCRIT 28.2 % (42-54); LYMPHOCYTES % (AUTO) 3.7 % (21.0-51.0); MEAN CORPUSCULAR HEMOGLOBIN 35.4 pg (27.0-33.0); MEAN CORPUSCULAR HGB CONC 34.8 g/dL (32.0-36.0); MEAN CORPUSCULAR VOLUME 101.8 fL (79-99); MONOCYTES % (AUTO) 8.6 % (3.0-13.0); NEUTROPHILS % (AUTO) 86.7 % (40.0-77.0); PLATELET COUNT (AUTO) 78 K/uL (130-400); RED BLOOD CELL COUNT(AUTO) 2.77 MIL/uL (4.50-6.20); RED CELL DISTRIBUTION WIDTH 18.8 % (11.0-15.5); WHITE BLOOD COUNT (AUTO) 7.7 K/uL (4.8-10.8)
[2022-06-20 06:49] LABS: ALBUMIN 1.7 g/dL (3.5-5.0); CREATININE 2.6 mg/dL (0.5-1.5); MAGNESIUM 2.3 mg/dL (1.80-2.40); POTASSIUM 3.8 mmol/L (3.5-5.1)
[2022-06-20] MEDS: FAMOTIDINE 20MG VIAL IV SCH (09:02)
[2022-06-20] MEDS: ALBUMIN (HUMAN) 25% 50 ML IV SCH (09:02)
[2022-06-20] MEDS: SODIUM BICARBONATE 650 MG TAB PO SCH ×2 (09:02→21:00)
[2022-06-20] MEDS: ZOSYN 3.375GM +NS 50ML IVPB SCH ×2 (09:02→20:41)
[2022-06-20] MEDS: LACTULOSE 20 GM/30 ML UDCUP PO SCH ×2 (09:02→21:00)
[2022-06-20] MEDS ORDERED: LORAZEPAM 2 MG/ML 1 ML VIAL ONE (11:44)
[2022-06-20] MEDS ORDERED: LORAZEPAM 2 MG/ML 1 ML VIAL IVP SCH (12:00)
[2022-06-20 12:13] LABS: HEMATOCRIT 29.3 % (42-54); MEAN CORPUSCULAR HEMOGLOBIN 35.7 pg (27.0-33.0); MEAN CORPUSCULAR HGB CONC 35.5 g/dL (32.0-36.0); MEAN CORPUSCULAR VOLUME 100.7 fL (79-99); RED BLOOD CELL COUNT(AUTO) 2.91 MIL/uL (4.50-6.20); RED CELL DISTRIBUTION WIDTH 18.6 % (11.0-15.5); WHITE BLOOD COUNT (AUTO) 9.3 K/uL (4.8-10.8)
[2022-06-20 12:30] LABS: ABG BASE EXCESS -9.4 mmol/L (-2.0-3.0); ABG HCO3 12.1 mmol/L (21.0-28.0); ABG PCO2 18 mmHg (35-48)
[2022-06-20] MEDS ORDERED: SODIUM BICARB 8.4% 50ML SYRINGE IV SCH (12:33)
[2022-06-20 12:41] LABS: ALBUMIN 1.8 g/dL (3.5-5.0); CREATININE 2.5 mg/dL (0.5-1.5); POTASSIUM 3.7 mmol/L (3.5-5.1); TOTAL PROTEIN, SERUM 6.2 g/dL (6.0-8.3)
[2022-06-20] MEDS ORDERED: SODIUM BICARB 8.4% 50ML SYRING 150 MEQ in DEXTROSE 5%-WATER 1,000 ML IVP SCH (13:00)
[2022-06-20] MEDS ORDERED: HYDROCORTISONE 20 MG TABLET PO SCH (13:57)
[2022-06-20] MEDS: HYDROCORTISONE 20 MG TABLET PO SCH ×2 (15:00→21:00)
[2022-06-20] MEDS: FOLIC ACID 1 MG, THIAMINE HCL 100 MG in 0.9%NACL 1000ML IV SCH ×2 (16:15→22:34)
[2022-06-20] MEDS ORDERED: COMPOUND IV REFRIGERATED 1 EACH IVSOLN MISC PRN (20:30)
[2022-06-20] MEDS ORDERED: FLUDROCORTISONE ACETATE 0.1 MG TABLET PO SCH (22:00)
[2022-06-20] MEDS ORDERED: 0.9% NACL 250ML IV SCH (22:30)
[2022-06-20] MEDS ORDERED: VANCOMYCIN 1G/250ML KIT 250 ML IV ONE (22:30)
[2022-06-20] MEDS ORDERED: VANCOMYCIN PROTOCOL PER PHARMACY IV SCH (22:30)
[2022-06-20] MEDS ORDERED: VANCOMYCIN 1G VIAL IVPB SCH (22:30)
[2022-06-20] MEDS: CEFEPIME HCL 2 GM VIAL IVP SCH (22:33)
[2022-06-21] VITALS (23 sets, daily range): BP systolic 102–132; BP diastolic 47–68
[2022-06-21] MEDS: SODIUM BICARB 8.4% 50ML SYRING 150 MEQ in DEXTROSE 5%-WATER 1,000 ML IVP SCH ×2 (02:07→16:46)
[2022-06-21 03:16] LABS: EOSINOPHILS % (AUTO) 0.2 % (0.0-8.0); HEMATOCRIT 25.2 % (42-54); LYMPHOCYTES % (AUTO) 3.7 % (21.0-51.0); MEAN CORPUSCULAR HEMOGLOBIN 35.5 pg (27.0-33.0); MEAN CORPUSCULAR HGB CONC 34.9 g/dL (32.0-36.0); MEAN CORPUSCULAR VOLUME 101.6 fL (79-99); MONOCYTES % (AUTO) 10.2 % (3.0-13.0); NEUTROPHILS % (AUTO) 85.2 % (40.0-77.0); PLATELET COUNT (AUTO) 54 K/uL (130-400); RED BLOOD CELL COUNT(AUTO) 2.48 MIL/uL (4.50-6.20); RED CELL DISTRIBUTION WIDTH 18.5 % (11.0-15.5)
[2022-06-21 03:39] LABS: ALBUMIN 1.5 g/dL (3.5-5.0); CREATININE 2.3 mg/dL (0.5-1.5); THYROID STIMULATING HORMONE 1.66 uIU/mL (0.36-3.74); TOTAL PROTEIN, SERUM 5.2 g/dL (6.0-8.3)
[2022-06-21 03:42] LABS: B-TYPE NATRIURETIC PEPTIDE 116 pg/mL (0-100)
[2022-06-21 03:58] LABS: POTASSIUM 2.8 mmol/L (3.5-5.1)
[2022-06-21] MEDS ORDERED: POTASSIUM CHLORIDE 10MEQ/100ML 10 MEQ/100 ML ML IV ONE (05:30)
[2022-06-21] MEDS: METRONIDAZOLE 500MG/100ML BAG 100 ML IVPB SCH ×2 (05:33→14:40)
[2022-06-21 06:55] LABS: ABG BASE EXCESS -0.8 mmol/L (-2.0-3.0); ABG HCO3 19.8 mmol/L (21.0-28.0); ABG OXYGEN SATURATION 97.8 % (95.0-99.0); ABG PCO2 24 mmHg (35-48)
[2022-06-21] MEDS: LACTULOSE 20 GM/30 ML UDCUP PO SCH ×2 (08:38→22:05)
[2022-06-21] MEDS: SODIUM BICARBONATE 650 MG TAB PO SCH ×2 (08:38→22:04)
[2022-06-21] MEDS: FAMOTIDINE 20MG VIAL IV SCH (08:38)
[2022-06-21] MEDS: FLUDROCORTISONE ACETATE 0.1 MG TABLET PO SCH (08:38)
[2022-06-21] MEDS: CEFEPIME HCL 2 GM VIAL IVP SCH (09:36)
[2022-06-21] MEDS: HYDROCORTISONE 20 MG TABLET PO SCH ×2 (09:36→22:04)
[2022-06-21] MEDS ORDERED: POTASSIUM CHLORIDE 10MEQ/100ML 100 ML IV PRN (12:30)
[2022-06-21] MEDS ORDERED: LIDOCAINE HCL-MPF 1% 2ML VIAL IV PRN (12:30)
[2022-06-21] MEDS: POTASSIUM CHLORIDE 10% ELIXIR 20 MEQ/15 ML UDCUP PO PRN ×2 (16:42→17:51)
[2022-06-21] MEDS ORDERED: 0.9% NACL 250ML 250 ML IV SCH (21:00)
[2022-06-21] MEDS ORDERED: VANCOMYCIN 750MG VIAL IVPB SCH (21:00)
[2022-06-21] MEDS: RIFAXIMIN 200 MG TABLET PO SCH (22:20)
[2022-06-22] VITALS (8 sets, daily range): BP systolic 103–155; BP diastolic 57–83
[2022-06-22] MEDS: METRONIDAZOLE 500MG/100ML BAG 100 ML IVPB SCH ×4 (02:38→22:28)
[2022-06-22] MEDS: CEFEPIME HCL 2 GM VIAL IVP SCH ×3 (03:29→22:29)
[2022-06-22 04:44] LABS: HEMATOCRIT 27.4 % (42-54); LYMPHOCYTES % (AUTO) 3.3 % (21.0-51.0); MEAN CORPUSCULAR HEMOGLOBIN 35.6 pg (27.0-33.0); MEAN CORPUSCULAR HGB CONC 35.8 g/dL (32.0-36.0); MEAN CORPUSCULAR VOLUME 99.6 fL (79-99); MONOCYTES % (AUTO) 8.8 % (3.0-13.0); NEUTROPHILS % (AUTO) 87.4 % (40.0-77.0); PLATELET COUNT (AUTO) 43 K/uL (130-400); RED BLOOD CELL COUNT(AUTO) 2.75 MIL/uL (4.50-6.20); RED CELL DISTRIBUTION WIDTH 18.7 % (11.0-15.5); WHITE BLOOD COUNT (AUTO) 4.2 K/uL (4.8-10.8)
[2022-06-22 05:10] LABS: ALBUMIN 1.5 g/dL (3.5-5.0); CREATININE 1.9 mg/dL (0.5-1.5); POTASSIUM 3.2 mmol/L (3.5-5.1); TOTAL PROTEIN, SERUM 5.4 g/dL (6.0-8.3)
[2022-06-22] MEDS: KCL 20 MEQ ERTAB PO PRN ×3 (06:47→11:10)
[2022-06-22] MEDS: HYDROCORTISONE 20 MG TABLET PO SCH ×2 (08:58→22:28)
[2022-06-22] MEDS: LACTULOSE 20 GM/30 ML UDCUP PO SCH ×3 (08:58→22:34)
[2022-06-22] MEDS: SODIUM BICARBONATE 650 MG TAB PO SCH (08:59)
[2022-06-22] MEDS: FAMOTIDINE 20MG VIAL IV SCH ×2 (08:59→22:28)
[2022-06-22] MEDS: FLUDROCORTISONE ACETATE 0.1 MG TABLET PO SCH (08:59)
[2022-06-22] MEDS: RIFAXIMIN 200 MG TABLET PO SCH (08:59)
[2022-06-22] MEDS: FOLIC ACID 1 MG, THIAMINE HCL 100 MG in 0.9%NACL 1000ML IV SCH (16:00)
[2022-06-22] MEDS ORDERED: PHYTONADIONE 10 MG in 0.9%NACL 50ML 50 ML IVPB ONE (17:00)
[2022-06-22] MEDS ORDERED: SPIRONOLACTONE 25 MG TAB PO ONE (20:30)
[2022-06-22] MEDS: RIFAXIMIN 550 MG TABLET PO SCH (22:28)
[2022-06-22] MEDS: OCTREOTIDE ACETATE 100 MCG/ML AMP IV SCH (22:30)
[2022-06-22] MEDS: ALBUMIN (HUMAN) 25% 50 ML IV SCH (22:31)
[2022-06-22] MEDS: MIDODRINE HCL 5 MG TABLET PO SCH (22:34)
[2022-06-23 03:57] LABS: BASOPHILS % (AUTO) 0.1 % (0.0-5.0); EOSINOPHILS % (AUTO) 0.3 % (0.0-8.0); HEMATOCRIT 28.1 % (42-54); MEAN CORPUSCULAR HEMOGLOBIN 35.4 pg (27.0-33.0); MEAN CORPUSCULAR HGB CONC 34.9 g/dL (32.0-36.0); MEAN CORPUSCULAR VOLUME 101.4 fL (79-99); PLATELET COUNT (AUTO) 44 K/uL (130-400); RED BLOOD CELL COUNT(AUTO) 2.77 MIL/uL (4.50-6.20); RED CELL DISTRIBUTION WIDTH 18.7 % (11.0-15.5); WHITE BLOOD COUNT (AUTO) 7.1 K/uL (4.8-10.8)
[2022-06-23 04:05] LABS: INR 2.9 (0.85-1.15); PROTHROMBIN TIME 29.8 SEC (9.6-11.6)
[2022-06-23 04:24] LABS: ALBUMIN 1.7 g/dL (3.5-5.0); CREATININE 2.1 mg/dL (0.5-1.5); POTASSIUM 3.6 mmol/L (3.5-5.1); TOTAL PROTEIN, SERUM 5.6 g/dL (6.0-8.3)
[2022-06-23 04:36] VITALS: BP 114/62
[2022-06-23] MEDS: ALBUMIN (HUMAN) 25% 50 ML IV SCH ×2 (05:29→15:15)
[2022-06-23] MEDS: METRONIDAZOLE 500MG/100ML BAG 100 ML IVPB SCH (05:29)
[2022-06-23] MEDS: POTASSIUM CHLORIDE 10% ELIXIR 20 MEQ/15 ML UDCUP PO PRN (06:04)
[2022-06-23] MEDS: HYDROCORTISONE 20 MG TABLET PO SCH ×2 (08:45→21:24)
[2022-06-23] MEDS: RIFAXIMIN 550 MG TABLET PO SCH ×2 (08:45→21:23)
[2022-06-23] MEDS: OCTREOTIDE ACETATE 100 MCG/ML AMP IV SCH ×3 (08:45→21:24)
[2022-06-23] MEDS: FLUDROCORTISONE ACETATE 0.1 MG TABLET PO SCH (08:45)
[2022-06-23] MEDS: MIDODRINE HCL 5 MG TABLET PO SCH ×3 (08:46→21:24)
[2022-06-23 08:51] VITALS: BP 128/61
[2022-06-23] MEDS ORDERED: SPIRONOLACTONE 25 MG TAB PO SCH (09:00)
[2022-06-23] MEDS: LACTULOSE 20 GM/30 ML UDCUP PO SCH ×3 (10:47→21:23)
[2022-06-23] MEDS: CEFEPIME HCL 2 GM VIAL IVP SCH (10:47)
[2022-06-23 12:11] VITALS: BP 117/59
[2022-06-23] MEDS: CEFTRIAXONE 2GM VIAL IVP SCH (15:10)
[2022-06-23] MEDS: FOLIC ACID 1 MG, THIAMINE HCL 100 MG in 0.9%NACL 1000ML IV SCH (15:18)
[2022-06-23 16:45] VITALS: BP 111/50
[2022-06-23 20:19] VITALS: BP 113/59
[2022-06-23] MEDS: FAMOTIDINE 20MG VIAL IV SCH (21:24)
[2022-06-24 00:21] VITALS: BP 126/50
[2022-06-24 03:21] VITALS: BP 107/59
[2022-06-24 03:37] LABS: EOSINOPHILS % (AUTO) 0.1 % (0.0-8.0); LYMPHOCYTES % (AUTO) 3.1 % (21.0-51.0); MEAN CORPUSCULAR HEMOGLOBIN 35.5 pg (27.0-33.0); MEAN CORPUSCULAR HGB CONC 34.8 g/dL (32.0-36.0); MEAN CORPUSCULAR VOLUME 101.9 fL (79-99); MONOCYTES % (AUTO) 7.1 % (3.0-13.0); NEUTROPHILS % (AUTO) 88.7 % (40.0-77.0); PLATELET COUNT (AUTO) 30 K/uL (130-400); RED BLOOD CELL COUNT(AUTO) 2.65 MIL/uL (4.50-6.20); RED CELL DISTRIBUTION WIDTH 18.6 % (11.0-15.5); WHITE BLOOD COUNT (AUTO) 6.7 K/uL (4.8-10.8)
[2022-06-24 03:57] LABS: ALBUMIN 1.9 g/dL (3.5-5.0); CREATININE 2.2 mg/dL (0.5-1.5); POTASSIUM 4.4 mmol/L (3.5-5.1); TOTAL PROTEIN, SERUM 5.3 g/dL (6.0-8.3)
[2022-06-24 04:10] LABS: HEMOGLOBIN A1C 3.9 % (4.0-6.0); INR 2.48 (0.85-1.15); PROTHROMBIN TIME 25.7 SEC (9.6-11.6)
[2022-06-24 07:00] VITALS: BP 105/45
[2022-06-24] MEDS: MIDODRINE HCL 5 MG TABLET PO SCH ×3 (08:39→21:23)
[2022-06-24] MEDS: FLUDROCORTISONE ACETATE 0.1 MG TABLET PO SCH (08:39)
[2022-06-24] MEDS: RIFAXIMIN 550 MG TABLET PO SCH ×2 (08:39→21:23)
[2022-06-24] MEDS: HYDROCORTISONE 20 MG TABLET PO SCH ×2 (08:39→21:24)
[2022-06-24] MEDS: LACTULOSE 20 GM/30 ML UDCUP PO SCH ×3 (08:40→21:23)
[2022-06-24] MEDS: OCTREOTIDE ACETATE 100 MCG/ML AMP IV SCH ×3 (08:53→21:22)
[2022-06-24 11:55] VITALS: BP 123/55
[2022-06-24] MEDS ORDERED: ALBUMIN (HUMAN) 25% 50 ML IV SCH (12:00)
[2022-06-24] MEDS ORDERED: PHARMACY COMMUNICATION MISC SCH (13:30)
[2022-06-24] MEDS: CEFTRIAXONE 2GM VIAL IVP SCH (13:32)
[2022-06-24] MEDS ORDERED: ALBUMIN (HUMAN) 25% 300 ML IV SCH (16:00)
[2022-06-24 16:05] VITALS: BP 110/58
[2022-06-24 19:05] VITALS: BP 107/50
[2022-06-24] MEDS: FAMOTIDINE 20MG VIAL IV SCH (21:20)
[2022-06-25] VITALS (7 sets, daily range): BP systolic 119–132; BP diastolic 56–67
[2022-06-25] MEDS: RIFAXIMIN 550 MG TABLET PO SCH ×2 (07:54→22:26)
[2022-06-25] MEDS: THIAMINE HCL 100 MG TABLET PO SCH (07:54)
[2022-06-25] MEDS: HYDROCORTISONE 20 MG TABLET PO SCH ×2 (07:54→22:25)
[2022-06-25] MEDS: FOLIC ACID 1 MG TABLET PO SCH (07:55)
[2022-06-25] MEDS: FLUDROCORTISONE ACETATE 0.1 MG TABLET PO SCH (07:55)
[2022-06-25] MEDS: OCTREOTIDE ACETATE 100 MCG/ML AMP IV SCH ×3 (07:59→22:26)
[2022-06-25] MEDS: MIDODRINE HCL 5 MG TABLET PO SCH ×3 (07:59→22:25)
[2022-06-25] MEDS: LACTULOSE 20 GM/30 ML UDCUP PO SCH ×3 (07:59→22:37)
[2022-06-25 09:34] LABS: EOSINOPHILS % (AUTO) 0.3 % (0.0-8.0); HEMATOCRIT 24.3 % (42-54); LYMPHOCYTES % (AUTO) 4.1 % (21.0-51.0); MEAN CORPUSCULAR HEMOGLOBIN 35.6 pg (27.0-33.0); MEAN CORPUSCULAR HGB CONC 34.2 g/dL (32.0-36.0); MEAN CORPUSCULAR VOLUME 104.3 fL (79-99); MONOCYTES % (AUTO) 8.6 % (3.0-13.0); NEUTROPHILS % (AUTO) 86.3 % (40.0-77.0); PLATELET COUNT (AUTO) 32 K/uL (130-400); RED BLOOD CELL COUNT(AUTO) 2.33 MIL/uL (4.50-6.20); RED CELL DISTRIBUTION WIDTH 18.5 % (11.0-15.5)
[2022-06-25 10:04] LABS: ALBUMIN 2.5 g/dL (3.5-5.0); CREATININE 2.8 mg/dL (0.5-1.5); PHOSPHORUS 4.7 mg/dL (2.5-4.9); TOTAL PROTEIN, SERUM 5.2 g/dL (6.0-8.3)
[2022-06-25 10:15] LABS: POTASSIUM 2.9 mmol/L (3.5-5.1)
[2022-06-25] MEDS: LIDOCAINE HCL-MPF 1% 2ML VIAL IV PRN ×2 (10:25→12:00)
[2022-06-25] MEDS: POTASSIUM CHLORIDE 10MEQ/100ML 100 ML IV PRN ×2 (10:25→11:59)
[2022-06-25] MEDS: KCL 20 MEQ ERTAB PO PRN ×4 (10:26→17:00)
[2022-06-25] MEDS ORDERED: ALBUMIN (HUMAN) 25% 50 ML IV SCH (12:30)
[2022-06-25] MEDS: CEFTRIAXONE 2GM VIAL IVP SCH (13:52)
[2022-06-25] MEDS: CYANOCOBALAMIN (VITAMIN B-12) 1,000 MCG TABLET PO SCH (13:58)
[2022-06-25] MEDS: FAMOTIDINE 20MG VIAL IV SCH (22:25)
[2022-06-26 03:00] VITALS: BP 145/70
[2022-06-26 03:45] LABS: HEMATOCRIT 26.9 % (42-54); LYMPHOCYTES % (AUTO) 2.8 % (21.0-51.0); MEAN CORPUSCULAR HEMOGLOBIN 36.2 pg (27.0-33.0); MEAN CORPUSCULAR HGB CONC 34.9 g/dL (32.0-36.0); MEAN CORPUSCULAR VOLUME 103.5 fL (79-99); MONOCYTES % (AUTO) 6.4 % (3.0-13.0); NEUTROPHILS % (AUTO) 89.7 % (40.0-77.0); PLATELET COUNT (AUTO) 48 K/uL (130-400); RED CELL DISTRIBUTION WIDTH 18.1 % (11.0-15.5); WHITE BLOOD COUNT (AUTO) 12.8 K/uL (4.8-10.8)
[2022-06-26 04:13] LABS: ALBUMIN 2.6 g/dL (3.5-5.0); CREATININE 2.6 mg/dL (0.5-1.5); POTASSIUM 3.2 mmol/L (3.5-5.1); TOTAL PROTEIN, SERUM 5.4 g/dL (6.0-8.3)
[2022-06-26] MEDS: POTASSIUM CHLORIDE 10% ELIXIR 20 MEQ/15 ML UDCUP PO PRN (06:30)
[2022-06-26 06:39] VITALS: BP 98/41
[2022-06-26] MEDS ORDERED: ALBUMIN (HUMAN) 25% 50 ML IV SCH (08:00)
[2022-06-26] MEDS ORDERED: BUMETANIDE 1MG/4ML VIAL IVP SCH (08:00)
[2022-06-26] MEDS ORDERED: RENAL DOSE IV SCH (08:00)
[2022-06-26] MEDS ORDERED: POTASSIUM CHLORIDE 10% ELIXIR 20 MEQ/15 ML UDCUP PO ONE (08:00)
[2022-06-26] MEDS: CITRIC ACID/SODIUM CITRATE 30 ML UDCUP PO SCH ×3 (09:34→22:00)
[2022-06-26] MEDS: MEROPENEM 500 MG VIAL IVP SCH ×2 (09:35→21:59)
[2022-06-26] MEDS: MIDODRINE HCL 5 MG TABLET PO SCH ×3 (09:35→22:00)
[2022-06-26] MEDS: HYDROCORTISONE 20 MG TABLET PO SCH ×2 (09:35→22:00)
[2022-06-26] MEDS: OCTREOTIDE ACETATE 100 MCG/ML AMP IV SCH ×3 (09:35→21:00)
[2022-06-26] MEDS: RIFAXIMIN 550 MG TABLET PO SCH ×2 (09:36→22:00)
[2022-06-26] MEDS: FOLIC ACID 1 MG TABLET PO SCH (09:36)
[2022-06-26] MEDS: LACTULOSE 20 GM/30 ML UDCUP PO SCH ×3 (09:36→22:00)
[2022-06-26] MEDS: CYANOCOBALAMIN (VITAMIN B-12) 1,000 MCG TABLET PO SCH (09:36)
[2022-06-26] MEDS: THIAMINE HCL 100 MG TABLET PO SCH (09:36)
[2022-06-26] MEDS: FLUDROCORTISONE ACETATE 0.1 MG TABLET PO SCH (09:44)
[2022-06-26] MEDS: AMILORIDE 5MG TAB PO SCH (09:53)
[2022-06-26 12:20] VITALS: BP 146/63
[2022-06-26 16:00] VITALS: BP 143/61
[2022-06-26 21:28] VITALS: BP 131/63
[2022-06-26] MEDS: FAMOTIDINE 20MG VIAL IV SCH (22:00)
[2022-06-27] VITALS (7 sets, daily range): BP systolic 107–150; BP diastolic 43–73
[2022-06-27] MEDS ORDERED: HYDROXYZINE 25 MG TABLET PO ONE ×2 (02:00→23:30)
[2022-06-27 05:37] LABS: HEMATOCRIT 24.1 % (42-54); LYMPHOCYTES % (AUTO) 2.6 % (21.0-51.0); MEAN CORPUSCULAR HEMOGLOBIN 35.6 pg (27.0-33.0); MEAN CORPUSCULAR HGB CONC 34.4 g/dL (32.0-36.0); MEAN CORPUSCULAR VOLUME 103.4 fL (79-99); MONOCYTES % (AUTO) 8.4 % (3.0-13.0); PLATELET COUNT (AUTO) 49 K/uL (130-400); RED BLOOD CELL COUNT(AUTO) 2.33 MIL/uL (4.50-6.20); RED CELL DISTRIBUTION WIDTH 18.6 % (11.0-15.5); WHITE BLOOD COUNT (AUTO) 9.7 K/uL (4.8-10.8)
[2022-06-27 06:17] LABS: ALBUMIN 2.3 g/dL (3.5-5.0); CREATININE 2.3 mg/dL (0.5-1.5); MAGNESIUM 2.2 mg/dL (1.80-2.40); TOTAL PROTEIN, SERUM 4.9 g/dL (6.0-8.3)
[2022-06-27 06:26] LABS: POTASSIUM 2.8 mmol/L (3.5-5.1)
[2022-06-27] MEDS: KCL 20 MEQ ERTAB PO PRN (06:53)
[2022-06-27] MEDS: THIAMINE HCL 100 MG TABLET PO SCH (08:02)
[2022-06-27] MEDS: HYDROCORTISONE 20 MG TABLET PO SCH ×2 (08:02→19:37)
[2022-06-27] MEDS: POTASSIUM CHLORIDE 10% ELIXIR 20 MEQ/15 ML UDCUP PO PRN ×4 (08:02→19:37)
[2022-06-27] MEDS: MEROPENEM 500 MG VIAL IVP SCH ×2 (08:02→19:37)
[2022-06-27] MEDS: CYANOCOBALAMIN (VITAMIN B-12) 1,000 MCG TABLET PO SCH (08:02)
[2022-06-27] MEDS: FOLIC ACID 1 MG TABLET PO SCH (08:02)
[2022-06-27] MEDS: RIFAXIMIN 550 MG TABLET PO SCH ×2 (08:02→19:37)
[2022-06-27] MEDS: CITRIC ACID/SODIUM CITRATE 30 ML UDCUP PO SCH ×2 (15:01→21:55)
[2022-06-27] MEDS: LACTULOSE 20 GM/30 ML UDCUP PO SCH ×2 (15:02→21:55)
[2022-06-27] MEDS: FLUDROCORTISONE ACETATE 0.1 MG TABLET PO SCH (15:03)
[2022-06-27] MEDS: OCTREOTIDE ACETATE 100 MCG/ML AMP IV SCH ×2 (15:03→21:56)
[2022-06-27] MEDS: MIDODRINE HCL 5 MG TABLET PO SCH ×2 (15:03→21:55)
[2022-06-27] MEDS: AMILORIDE 5MG TAB PO SCH (15:03)
[2022-06-27] MEDS ORDERED: HYDROXYZINE 25 MG TABLET PO SCH (19:30)
[2022-06-27] MEDS: FAMOTIDINE 20MG VIAL IV SCH (19:37)
[2022-06-28] VITALS (48 sets, daily range): BP systolic 53–147; BP diastolic 22–98
[2022-06-28] MEDS: OCTREOTIDE ACETATE 100 MCG/ML AMP IV SCH (06:00)
[2022-06-28] MEDS: MIDODRINE HCL 5 MG TABLET PO SCH ×3 (06:00→21:28)
[2022-06-28] MEDS: LACTULOSE 20 GM/30 ML UDCUP PO SCH ×3 (06:00→21:28)
[2022-06-28] MEDS: CITRIC ACID/SODIUM CITRATE 30 ML UDCUP PO SCH ×3 (06:00→21:28)
[2022-06-28] MEDS: RIFAXIMIN 550 MG TABLET PO SCH ×2 (09:17→20:50)
[2022-06-28] MEDS: CYANOCOBALAMIN (VITAMIN B-12) 1,000 MCG TABLET PO SCH (09:17)
[2022-06-28] MEDS: FOLIC ACID 1 MG TABLET PO SCH (09:17)
[2022-06-28] MEDS: HYDROCORTISONE 20 MG TABLET PO SCH ×2 (09:17→21:43)
[2022-06-28] MEDS: THIAMINE HCL 100 MG TABLET PO SCH (09:17)
[2022-06-28] MEDS: AMILORIDE 5MG TAB PO SCH (09:18)
[2022-06-28] MEDS: FLUDROCORTISONE ACETATE 0.1 MG TABLET PO SCH (09:18)
[2022-06-28] MEDS: MEROPENEM 500 MG VIAL IVP SCH ×2 (09:18→20:36)
[2022-06-28 10:18] LABS: ABG BASE EXCESS -22.9 mmol/L (-2.0-3.0); ABG HCO3 5.4 mmol/L (21.0-28.0); ABG OXYGEN SATURATION 95.3 % (95.0-99.0); ABG PCO2 19 mmHg (35-48)
[2022-06-28 10:38] LABS: BASOPHILS % (AUTO) 0.1 % (0.0-5.0); LYMPHOCYTES % (AUTO) 3.5 % (21.0-51.0); MEAN CORPUSCULAR HEMOGLOBIN 37.2 pg (27.0-33.0); MONOCYTES % (AUTO) 8.6 % (3.0-13.0); NEUTROPHILS % (AUTO) 84.2 % (40.0-77.0); NUCLEATED RED BLOOD CELLS 0.1 % (0.0-0.19); PLATELET COUNT (AUTO) 91 K/uL (130-400); RED BLOOD CELL COUNT(AUTO) 1.21 MIL/uL (4.50-6.20)
[2022-06-28 10:46] LABS: CREATININE 3.4 mg/dL (0.5-1.5); POTASSIUM 4.1 mmol/L (3.5-5.1)
[2022-06-28 11:01] LABS: WHITE BLOOD COUNT (AUTO) 31.2 K/uL (4.8-10.8)
[2022-06-28 11:09] LABS: ALBUMIN 1.6 g/dL (3.5-5.0); MAGNESIUM 2.5 mg/dL (1.80-2.40); PHOSPHORUS 8.4 mg/dL (2.5-4.9); TOTAL PROTEIN, SERUM 3.7 g/dL (6.0-8.3)
[2022-06-28] MEDS ORDERED: NOREPINEPHRIN 4MG/NS 250ML 250 ML IV ONE (11:47)
[2022-06-28 11:58] LABS: LYMPHOCYTES % (MANUAL) 5 % (22-44); MAN.DIFF COMMENT-IMPRESSION MANUAL DIFFERENTIAL; MONOCYTES % (MANUAL) 7 % (2-9); SEGMENTED NEUTROPHILS % 88 % (40-70)
[2022-06-28 11:59] LABS: PLATELET MORPHOLOGY COMMENT DECREASED
[2022-06-28 12:20] LABS: ABG BASE EXCESS -24.5 mmol/L (-2.0-3.0); ABG HCO3 4.6 mmol/L (21.0-28.0); ABG OXYGEN SATURATION 98.2 % (95.0-99.0); ABG PCO2 20 mmHg (35-48)
[2022-06-28 12:22] LABS: MEAN CORPUSCULAR HEMOGLOBIN 37.3 pg (27.0-33.0); MEAN CORPUSCULAR HGB CONC 29.9 g/dL (32.0-36.0); MEAN CORPUSCULAR VOLUME 124.5 fL (79-99); NUCLEATED RED BLOOD CELLS 0.3 % (0.0-0.19); RED BLOOD CELL COUNT(AUTO) 1.1 MIL/uL (4.50-6.20); RED CELL DISTRIBUTION WIDTH 20.8 % (11.0-15.5)
[2022-06-28 12:25] LABS: HEMATOCRIT 13.7 % (42-54); WHITE BLOOD COUNT (AUTO) 34.9 K/uL (4.8-10.8)
[2022-06-28] MEDS ORDERED: SODIUM BICARB 50MEQ 50ML VIAL 50 ML ONE (12:26)
[2022-06-28] MEDS ORDERED: MEROPENEM 1 GM VIAL IVPB SCH (12:30)
[2022-06-28] MEDS ORDERED: TRANEXAMIC ACID 1000MG/10ML IV STA (12:46)
[2022-06-28] MEDS ORDERED: SODIUM BICARB 50MEQ 50ML VIAL IV STA (12:46)
[2022-06-28 13:01] LABS: ALBUMIN 1.7 g/dL (3.5-5.0); CREATININE 3.5 mg/dL (0.5-1.5); POTASSIUM 4.3 mmol/L (3.5-5.1); TOTAL PROTEIN, SERUM 3.7 g/dL (6.0-8.3)
[2022-06-28] MEDS ORDERED: PHYTONADIONE 10 MG/1 ML AMP IVPB ONE ×2 (13:09→13:30)
[2022-06-28 13:26] LABS: PROTHROMBIN TIME > 90.0 SEC (9.6-11.6)
[2022-06-28 13:27] LABS: INR > 8.00 (0.85-1.15)
[2022-06-28] MEDS: TRANEXAMIC ACID 1,000 MG in 0.9%NACL 100ML 100 ML IV SCH (13:37)
[2022-06-28] MEDS: OCTREOTIDE ACETATE 1,250 MCG in 0.9% NACL 250ML 250 ML IV SCH (13:39)
[2022-06-28] MEDS: VASOPRESSIN 40 UNITS in 0.9%NACL 50ML 40 ML IV SCH (13:40)
[2022-06-28 13:58] LABS: ABG BASE EXCESS -23.1 mmol/L (-2.0-3.0); ABG HCO3 7.1 mmol/L (21.0-28.0); ABG PCO2 33 mmHg (35-48)
[2022-06-28] MEDS: FLUCONAZOLE 200 MG/NS 100 ML IV SCH (14:34)
[2022-06-28] MEDS ORDERED: ALBUMIN (HUMAN) 5% 250 ML IV ONE (15:30)
[2022-06-28 16:00] LABS: HEMATOCRIT 28.1 % (42-54); MEAN CORPUSCULAR HEMOGLOBIN 31.9 pg (27.0-33.0); MEAN CORPUSCULAR VOLUME 102.9 fL (79-99); NUCLEATED RED BLOOD CELLS 0.5 % (0.0-0.19); RED BLOOD CELL COUNT(AUTO) 2.73 MIL/uL (4.50-6.20); RED CELL DISTRIBUTION WIDTH 20.3 % (11.0-15.5)
[2022-06-28 16:04] LABS: WHITE BLOOD COUNT (AUTO) 34.1 K/uL (4.8-10.8)
[2022-06-28] MEDS ORDERED: SODIUM BICARB 8.4% 50ML SYRING 150 MEQ in DEXTROSE 5%-WATER 1,000 ML IV SCH ×2 (16:30→17:00)
[2022-06-28 16:39] LABS: ALBUMIN 2.1 g/dL (3.5-5.0); CREATININE 3.3 mg/dL (0.5-1.5); POTASSIUM 3.9 mmol/L (3.5-5.1); TOTAL PROTEIN, SERUM 4.7 g/dL (6.0-8.3)
[2022-06-28 19:43] LABS: HEMATOCRIT 27.8 % (42-54); MEAN CORPUSCULAR HEMOGLOBIN 32.2 pg (27.0-33.0); MEAN CORPUSCULAR HGB CONC 30.6 g/dL (32.0-36.0); MEAN CORPUSCULAR VOLUME 105.3 fL (79-99); NUCLEATED RED BLOOD CELLS 0.4 % (0.0-0.19); RED BLOOD CELL COUNT(AUTO) 2.64 MIL/uL (4.50-6.20); RED CELL DISTRIBUTION WIDTH 21.5 % (11.0-15.5)
[2022-06-28 19:47] LABS: WHITE BLOOD COUNT (AUTO) 38.4 K/uL (4.8-10.8)
[2022-06-28 19:58] LABS: PARTIAL THROMBOPLASTIN TIME 60.2 SEC (26.3-35.5)
[2022-06-28 20:11] LABS: INR > 8.00 (0.85-1.15); PROTHROMBIN TIME > 90.0 SEC (9.6-11.6)
[2022-06-28 20:19] LABS: ALBUMIN 2.5 g/dL (3.5-5.0); CREATININE 3.4 mg/dL (0.5-1.5); POTASSIUM 3.9 mmol/L (3.5-5.1); TOTAL PROTEIN, SERUM 4.9 g/dL (6.0-8.3)
[2022-06-28] MEDS: FAMOTIDINE 20MG VIAL IV SCH (20:36)
[2022-06-28 22:24] LABS: ABG BASE EXCESS -18.1 mmol/L (-2.0-3.0); ABG HCO3 10.6 mmol/L (21.0-28.0); ABG OXYGEN SATURATION 99.7 % (95.0-99.0); ABG PCO2 36 mmHg (35-48)
[2022-06-28] MEDS ORDERED: SODIUM BICARB 50MEQ 50ML VIAL IV ONE (23:30)
[2022-06-29] VITALS (57 sets, daily range): BP systolic 89–160; BP diastolic 40–99
[2022-06-29 01:34] LABS: ALBUMIN 2.2 g/dL (3.5-5.0); CREATININE 3.4 mg/dL (0.5-1.5); POTASSIUM 3.9 mmol/L (3.5-5.1); TOTAL PROTEIN, SERUM 4.2 g/dL (6.0-8.3)
[2022-06-29 03:36] LABS: ABG BASE EXCESS -13.7 mmol/L (-2.0-3.0); ABG HCO3 12.6 mmol/L (21.0-28.0); ABG OXYGEN SATURATION 99.6 % (95.0-99.0); ABG PCO2 31 mmHg (35-48)
[2022-06-29 04:33] LABS: BASOPHILS % (AUTO) 0.1 % (0.0-5.0); HEMATOCRIT 24.5 % (42-54); LYMPHOCYTES % (AUTO) 2.3 % (21.0-51.0); MEAN CORPUSCULAR HEMOGLOBIN 32.2 pg (27.0-33.0); MEAN CORPUSCULAR HGB CONC 32.2 g/dL (32.0-36.0); MONOCYTES % (AUTO) 3.3 % (3.0-13.0); NUCLEATED RED BLOOD CELLS 0.5 % (0.0-0.19); PLATELET COUNT (AUTO) 58 K/uL (130-400); RED BLOOD CELL COUNT(AUTO) 2.45 MIL/uL (4.50-6.20); RED CELL DISTRIBUTION WIDTH 22.3 % (11.0-15.5)
[2022-06-29 04:37] LABS: WHITE BLOOD COUNT (AUTO) 34.1 K/uL (4.8-10.8)
[2022-06-29 05:34] LABS: ALBUMIN 2.2 g/dL (3.5-5.0); CREATININE 3.5 mg/dL (0.5-1.5); MAGNESIUM 2.5 mg/dL (1.80-2.40); PHOSPHORUS 9.8 mg/dL (2.5-4.9); POTASSIUM 3.9 mmol/L (3.5-5.1); TOTAL PROTEIN, SERUM 4.1 g/dL (6.0-8.3)
[2022-06-29] MEDS: VASOPRESSIN 40 UNITS in 0.9%NACL 50ML 40 ML IV SCH (06:52)
[2022-06-29] MEDS: NOREPINEPHRIN 4MG/NS 250ML 250 ML IV SCH ×2 (07:03→20:08)
[2022-06-29] MEDS: MIDODRINE HCL 5 MG TABLET PO SCH ×3 (07:13→21:08)
[2022-06-29] MEDS: LACTULOSE 20 GM/30 ML UDCUP PO SCH ×3 (07:13→21:09)
[2022-06-29] MEDS: CITRIC ACID/SODIUM CITRATE 30 ML UDCUP PO SCH ×3 (07:13→21:25)
[2022-06-29 09:54] LABS: HEMATOCRIT 22.6 % (42-54); MEAN CORPUSCULAR HEMOGLOBIN 32.5 pg (27.0-33.0); MEAN CORPUSCULAR HGB CONC 33.2 g/dL (32.0-36.0); MEAN CORPUSCULAR VOLUME 97.8 fL (79-99); NUCLEATED RED BLOOD CELLS 0.8 % (0.0-0.19); RED BLOOD CELL COUNT(AUTO) 2.31 MIL/uL (4.50-6.20); RED CELL DISTRIBUTION WIDTH 22.6 % (11.0-15.5); WHITE BLOOD COUNT (AUTO) 27.6 K/uL (4.8-10.8)
[2022-06-29] MEDS: MEROPENEM 500 MG VIAL IVP SCH ×2 (09:59→20:08)
[2022-06-29] MEDS: RIFAXIMIN 550 MG TABLET PO SCH ×2 (09:59→20:43)
[2022-06-29] MEDS: FOLIC ACID 1 MG TABLET PO SCH (09:59)
[2022-06-29] MEDS: THIAMINE HCL 100 MG TABLET PO SCH (09:59)
[2022-06-29] MEDS: CYANOCOBALAMIN (VITAMIN B-12) 1,000 MCG TABLET PO SCH (10:00)
[2022-06-29] MEDS: FLUDROCORTISONE ACETATE 0.1 MG TABLET PO SCH (10:00)
[2022-06-29] MEDS: HYDROCORTISONE 20 MG TABLET PO SCH ×4 (10:04→23:20)
[2022-06-29] MEDS: PHENYLEPHRINE HCL 50 MG in 0.9% NACL 250ML 250 ML IV PRN (10:08)
[2022-06-29 10:18] LABS: INR 4.03 (0.85-1.15); PARTIAL THROMBOPLASTIN TIME 97.7 SEC (26.3-35.5); PROTHROMBIN TIME 40.6 SEC (9.6-11.6)
[2022-06-29 10:25] LABS: CREATININE 3.7 mg/dL (0.5-1.5); POTASSIUM 3.7 mmol/L (3.5-5.1); TOTAL PROTEIN, SERUM 3.7 g/dL (6.0-8.3)
[2022-06-29] MEDS ORDERED: PHARMACY COMMUNICATION MISC SCH (11:00)
[2022-06-29] MEDS: DEXTROSE 10%-WATER 1,000 ML IV SCH (11:03)
[2022-06-29] MEDS: SODIUM BICARB 50MEQ 50ML VIAL 150 MEQ in DEXTROSE 5%-WATER 1,000 ML IV SCH (11:03)
[2022-06-29] MEDS: TRANEXAMIC ACID 1,000 MG in 0.9%NACL 100ML 100 ML IV SCH (11:07)
[2022-06-29 13:15] LABS: MEAN CORPUSCULAR HEMOGLOBIN 32.7 pg (27.0-33.0); MEAN CORPUSCULAR HGB CONC 34.1 g/dL (32.0-36.0); MEAN CORPUSCULAR VOLUME 95.9 fL (79-99); NUCLEATED RED BLOOD CELLS 1.8 % (0.0-0.19); RED BLOOD CELL COUNT(AUTO) 2.17 MIL/uL (4.50-6.20); RED CELL DISTRIBUTION WIDTH 22.7 % (11.0-15.5); WHITE BLOOD COUNT (AUTO) 24.5 K/uL (4.8-10.8)
[2022-06-29 13:19] LABS: HEMATOCRIT 20.8 % (42-54)
[2022-06-29 13:40] LABS: ALBUMIN 2.1 g/dL (3.5-5.0); CREATININE 3.9 mg/dL (0.5-1.5); POTASSIUM 3.7 mmol/L (3.5-5.1); TOTAL PROTEIN, SERUM 3.8 g/dL (6.0-8.3)
[2022-06-29 17:42] LABS: MEAN CORPUSCULAR HEMOGLOBIN 32.4 pg (27.0-33.0); MEAN CORPUSCULAR HGB CONC 33.7 g/dL (32.0-36.0); MEAN CORPUSCULAR VOLUME 96.1 fL (79-99); NUCLEATED RED BLOOD CELLS 2.2 % (0.0-0.19); RED BLOOD CELL COUNT(AUTO) 2.04 MIL/uL (4.50-6.20); RED CELL DISTRIBUTION WIDTH 22.7 % (11.0-15.5); WHITE BLOOD COUNT (AUTO) 23.6 K/uL (4.8-10.8)
[2022-06-29 18:07] LABS: HEMATOCRIT 19.6 % (42-54)
[2022-06-29 18:13] LABS: ALBUMIN 2.2 g/dL (3.5-5.0); POTASSIUM 3.4 mmol/L (3.5-5.1); TOTAL PROTEIN, SERUM 3.9 g/dL (6.0-8.3)
[2022-06-29] MEDS: FLUCONAZOLE 200 MG/NS 100 ML IV SCH (18:29)
[2022-06-29] MEDS: BALSAM PERU/CASTOR OIL 60 GM TUBE TP SCH (20:43)
[2022-06-29] MEDS: FAMOTIDINE 20MG VIAL IV SCH (20:43)
[2022-06-29 22:44] LABS: HEMATOCRIT 22.3 % (42-54); MEAN CORPUSCULAR HEMOGLOBIN 31.5 pg (27.0-33.0); MEAN CORPUSCULAR VOLUME 89.9 fL (79-99); NUCLEATED RED BLOOD CELLS 2.2 % (0.0-0.19); RED BLOOD CELL COUNT(AUTO) 2.48 MIL/uL (4.50-6.20); RED CELL DISTRIBUTION WIDTH 22.5 % (11.0-15.5); WHITE BLOOD COUNT (AUTO) 23.4 K/uL (4.8-10.8)
[2022-06-29 23:38] LABS: ALBUMIN 2.2 g/dL (3.5-5.0); POTASSIUM 3.2 mmol/L (3.5-5.1); TOTAL PROTEIN, SERUM 3.8 g/dL (6.0-8.3)
[2022-06-30] VITALS (76 sets, daily range): BP systolic 99–157; BP diastolic 43–81
[2022-06-30] MEDS: POTASSIUM CHLORIDE 10% ELIXIR 20 MEQ/15 ML UDCUP PO PRN ×5 (00:20→18:40)
[2022-06-30] MEDS: PHENYLEPHRINE HCL 50 MG in 0.9% NACL 250ML 250 ML IV PRN ×2 (00:46→19:01)
[2022-06-30] MEDS: VASOPRESSIN 40 UNITS in 0.9%NACL 50ML 40 ML IV SCH ×2 (01:32→20:06)
[2022-06-30] MEDS: SODIUM BICARB 50MEQ 50ML VIAL 150 MEQ in DEXTROSE 5%-WATER 1,000 ML IV SCH ×2 (01:45→18:31)
[2022-06-30 03:43] LABS: HEMATOCRIT 21.1 % (42-54); MEAN CORPUSCULAR HEMOGLOBIN 30.8 pg (27.0-33.0); MEAN CORPUSCULAR HGB CONC 34.1 g/dL (32.0-36.0); MEAN CORPUSCULAR VOLUME 90.2 fL (79-99); NUCLEATED RED BLOOD CELLS 1.8 % (0.0-0.19); PLATELET COUNT (AUTO) 17 K/uL (130-400); RED BLOOD CELL COUNT(AUTO) 2.34 MIL/uL (4.50-6.20); RED CELL DISTRIBUTION WIDTH 22.3 % (11.0-15.5); WHITE BLOOD COUNT (AUTO) 15.6 K/uL (4.8-10.8)
[2022-06-30 04:22] LABS: ALBUMIN 2.1 g/dL (3.5-5.0); CREATININE 4.2 mg/dL (0.5-1.5); POTASSIUM 3.5 mmol/L (3.5-5.1); TOTAL PROTEIN, SERUM 3.7 g/dL (6.0-8.3)
[2022-06-30] MEDS: CITRIC ACID/SODIUM CITRATE 30 ML UDCUP PO SCH ×3 (05:30→21:49)
[2022-06-30] MEDS: MIDODRINE HCL 5 MG TABLET PO SCH ×3 (05:30→21:49)
[2022-06-30] MEDS: LACTULOSE 20 GM/30 ML UDCUP PO SCH ×3 (05:30→21:50)
[2022-06-30] MEDS: HYDROCORTISONE 20 MG TABLET PO SCH ×4 (05:31→23:48)
[2022-06-30 07:06] LABS: HEMATOCRIT 22.4 % (42-54); MEAN CORPUSCULAR HEMOGLOBIN 30.7 pg (27.0-33.0); MEAN CORPUSCULAR VOLUME 92.9 fL (79-99); NUCLEATED RED BLOOD CELLS 1.5 % (0.0-0.19); PLATELET COUNT (AUTO) 16 K/uL (130-400); RED BLOOD CELL COUNT(AUTO) 2.41 MIL/uL (4.50-6.20); RED CELL DISTRIBUTION WIDTH 23.2 % (11.0-15.5); WHITE BLOOD COUNT (AUTO) 14.2 K/uL (4.8-10.8)
[2022-06-30] MEDS: FOLIC ACID 1 MG TABLET PO SCH (07:50)
[2022-06-30] MEDS: BALSAM PERU/CASTOR OIL 60 GM TUBE TP SCH ×2 (07:50→21:25)
[2022-06-30] MEDS: THIAMINE HCL 100 MG TABLET PO SCH (07:50)
[2022-06-30] MEDS: FLUDROCORTISONE ACETATE 0.1 MG TABLET PO SCH (07:50)
[2022-06-30] MEDS: MEROPENEM 500 MG VIAL IVP SCH ×2 (07:50→19:40)
[2022-06-30] MEDS: RIFAXIMIN 550 MG TABLET PO SCH ×2 (07:50→19:40)
[2022-06-30] MEDS: CYANOCOBALAMIN (VITAMIN B-12) 1,000 MCG TABLET PO SCH (07:50)
[2022-06-30 07:58] LABS: ALBUMIN 2.1 g/dL (3.5-5.0); CREATININE 4.3 mg/dL (0.5-1.5); POTASSIUM 3.8 mmol/L (3.5-5.1); TOTAL PROTEIN, SERUM 3.8 g/dL (6.0-8.3)
[2022-06-30 09:41] LABS: HEMATOCRIT 21.9 % (42-54); MEAN CORPUSCULAR HGB CONC 34.2 g/dL (32.0-36.0); MEAN CORPUSCULAR VOLUME 90.5 fL (79-99); NUCLEATED RED BLOOD CELLS 0.8 % (0.0-0.19); RED BLOOD CELL COUNT(AUTO) 2.42 MIL/uL (4.50-6.20); RED CELL DISTRIBUTION WIDTH 22.5 % (11.0-15.5); WHITE BLOOD COUNT (AUTO) 12.5 K/uL (4.8-10.8)
[2022-06-30 10:11] LABS: ALBUMIN 2.1 g/dL (3.5-5.0); CREATININE 4.3 mg/dL (0.5-1.5); POTASSIUM 3.7 mmol/L (3.5-5.1); TOTAL PROTEIN, SERUM 3.8 g/dL (6.0-8.3)
[2022-06-30] MEDS: FLUCONAZOLE 200 MG/NS 100 ML IV SCH (11:31)
[2022-06-30] MEDS: DEXTROSE 10%-WATER 1,000 ML IV SCH (11:31)
[2022-06-30] MEDS: TRANEXAMIC ACID 1,000 MG in 0.9%NACL 100ML 100 ML IV SCH (12:08)
[2022-06-30 13:51] LABS: MEAN CORPUSCULAR HEMOGLOBIN 31.4 pg (27.0-33.0); MEAN CORPUSCULAR VOLUME 89.8 fL (79-99); NUCLEATED RED BLOOD CELLS 0.7 % (0.0-0.19); PLATELET COUNT (AUTO) 14 K/uL (130-400); RED BLOOD CELL COUNT(AUTO) 2.45 MIL/uL (4.50-6.20); RED CELL DISTRIBUTION WIDTH 23.3 % (11.0-15.5); WHITE BLOOD COUNT (AUTO) 13.8 K/uL (4.8-10.8)
[2022-06-30 14:19] LABS: ALBUMIN 2.1 g/dL (3.5-5.0); CREATININE 4.5 mg/dL (0.5-1.5); POTASSIUM 3.6 mmol/L (3.5-5.1); TOTAL PROTEIN, SERUM 3.8 g/dL (6.0-8.3)
[2022-06-30 16:56] LABS: INR > 8.00 (0.85-1.15)
[2022-06-30 16:58] LABS: PROTHROMBIN TIME > 90.0 SEC (9.6-11.6)
[2022-06-30] MEDS ORDERED: TRAMADOL HCL 50 MG TABLET PO SCH (19:15)
[2022-06-30 19:18] LABS: HEMATOCRIT 23.7 % (42-54); MEAN CORPUSCULAR HEMOGLOBIN 31.4 pg (27.0-33.0); MEAN CORPUSCULAR HGB CONC 33.8 g/dL (32.0-36.0); MEAN CORPUSCULAR VOLUME 92.9 fL (79-99); NUCLEATED RED BLOOD CELLS 0.5 % (0.0-0.19); PLATELET COUNT (AUTO) 18 K/uL (130-400); RED BLOOD CELL COUNT(AUTO) 2.55 MIL/uL (4.50-6.20); RED CELL DISTRIBUTION WIDTH 23.6 % (11.0-15.5); WHITE BLOOD COUNT (AUTO) 18.1 K/uL (4.8-10.8)
[2022-06-30] MEDS: TRAMADOL HCL 50 MG TABLET PO PRN (19:39)
[2022-06-30] MEDS: FAMOTIDINE 20MG VIAL IV SCH (19:41)
[2022-06-30 19:54] LABS: ALBUMIN 2.1 g/dL (3.5-5.0); CREATININE 4.5 mg/dL (0.5-1.5); POTASSIUM 3.8 mmol/L (3.5-5.1)
[2022-06-30] MEDS: OCTREOTIDE ACETATE 1,250 MCG in 0.9% NACL 250ML 250 ML IV SCH (21:24)
[2022-07-01] VITALS (67 sets, daily range): BP systolic 0–162; BP diastolic 0–95
[2022-07-01 01:06] LABS: MEAN CORPUSCULAR HEMOGLOBIN 32.1 pg (27.0-33.0); MEAN CORPUSCULAR HGB CONC 35.6 g/dL (32.0-36.0); MEAN CORPUSCULAR VOLUME 90.1 fL (79-99); NUCLEATED RED BLOOD CELLS 0.5 % (0.0-0.19); RED BLOOD CELL COUNT(AUTO) 2.12 MIL/uL (4.50-6.20); RED CELL DISTRIBUTION WIDTH 23.6 % (11.0-15.5); WHITE BLOOD COUNT (AUTO) 15.5 K/uL (4.8-10.8)
[2022-07-01 01:21] LABS: HEMATOCRIT 19.1 % (42-54)
[2022-07-01 01:45] LABS: ALBUMIN 1.8 g/dL (3.5-5.0); CREATININE 4.5 mg/dL (0.5-1.5); POTASSIUM 3.8 mmol/L (3.5-5.1); TOTAL PROTEIN, SERUM 3.6 g/dL (6.0-8.3)
[2022-07-01 02:04] LABS: INR > 8.00 (0.85-1.15); PROTHROMBIN TIME > 90.0 SEC (9.6-11.6)
[2022-07-01] MEDS: TRAMADOL HCL 50 MG TABLET PO PRN (03:13)
[2022-07-01] MEDS: LACTULOSE 20 GM/30 ML UDCUP PO SCH ×2 (06:48→13:12)
[2022-07-01] MEDS: MIDODRINE HCL 5 MG TABLET PO SCH ×2 (06:48→13:13)
[2022-07-01] MEDS: HYDROCORTISONE 20 MG TABLET PO SCH ×3 (06:48→16:48)
[2022-07-01] MEDS: CITRIC ACID/SODIUM CITRATE 30 ML UDCUP PO SCH ×2 (06:48→13:12)
[2022-07-01] MEDS: CYANOCOBALAMIN (VITAMIN B-12) 1,000 MCG TABLET PO SCH (09:42)
[2022-07-01] MEDS: RIFAXIMIN 550 MG TABLET PO SCH (09:42)
[2022-07-01] MEDS: FLUDROCORTISONE ACETATE 0.1 MG TABLET PO SCH (09:42)
[2022-07-01] MEDS: THIAMINE HCL 100 MG TABLET PO SCH (09:42)
[2022-07-01] MEDS: FOLIC ACID 1 MG TABLET PO SCH (09:42)
[2022-07-01] MEDS: SODIUM BICARB 50MEQ 50ML VIAL 150 MEQ in DEXTROSE 5%-WATER 1,000 ML IV SCH (09:42)
[2022-07-01] MEDS: MEROPENEM 500 MG VIAL IVP SCH (09:43)
[2022-07-01] MEDS: BALSAM PERU/CASTOR OIL 60 GM TUBE TP SCH ×2 (09:43→21:04)
[2022-07-01] MEDS ORDERED: PHYTONADIONE 10 MG in 0.9%NACL 50ML 50 ML IVPB SCH (10:00)
[2022-07-01] MEDS: DEXTROSE 10%-WATER 1,000 ML IV SCH (11:00)
[2022-07-01] MEDS: FLUCONAZOLE 200 MG/NS 100 ML IV SCH (11:35)
[2022-07-01 13:20] LABS: HEMATOCRIT 25.4 % (42-54); MEAN CORPUSCULAR HEMOGLOBIN 31.4 pg (27.0-33.0); MEAN CORPUSCULAR HGB CONC 34.3 g/dL (32.0-36.0); MEAN CORPUSCULAR VOLUME 91.7 fL (79-99); NUCLEATED RED BLOOD CELLS 0.4 % (0.0-0.19); PLATELET COUNT (AUTO) 24 K/uL (130-400); RED BLOOD CELL COUNT(AUTO) 2.77 MIL/uL (4.50-6.20); RED CELL DISTRIBUTION WIDTH 23.9 % (11.0-15.5); WHITE BLOOD COUNT (AUTO) 15.6 K/uL (4.8-10.8)
[2022-07-01 13:37] LABS: CARBON DIOXIDE 24 mmol/L (21-32); CHLORIDE 104 mmol/L (101-111); CREATININE 4.4 mg/dL (0.5-1.5); GLOMERULAR FILTR. RATE CALC 14 mL/min (>90); GLUCOSE,RANDOM 253 mg/dL (70-105); POTASSIUM 3.8 mmol/L (3.5-5.1); SODIUM SERUM 150 mmol/L (136-145); TOTAL PROTEIN, SERUM 3.9 g/dL (6.0-8.3)
[2022-07-01 13:40] LABS: UREA NITROGEN, BLOOD 84 mg/dL (7-18)
[2022-07-01] MEDS ORDERED: LORAZEPAM 2 MG/ML 1 ML VIAL IVP PRN (14:56)
[2022-07-01] MEDS ORDERED: SCOPOLAMINE HYDROBROMIDE 1 EACH ADH..PATCH TD SCH (14:57)
[2022-07-01] MEDS ORDERED: ONDANSETRON 4MG INJ IVP PRN (14:57)
[2022-07-01] MEDS ORDERED: MORPHINE 4 MG SYG IM PRN (14:58)
[2022-07-01] MEDS: MORPHINE 4 MG SYG IV PRN ×3 (15:15→23:59)
[2022-07-02 08:32] VITALS: BP 117/50
[2022-07-02] MEDS: MORPHINE 4 MG SYG IV PRN ×2 (11:40→16:18)
[2022-07-02] MEDS: BALSAM PERU/CASTOR OIL 60 GM TUBE TP SCH ×2 (16:22→19:32)
[2022-07-02 20:25] VITALS: BP 104/65
[2022-07-03] MEDS: BALSAM PERU/CASTOR OIL 60 GM TUBE TP SCH ×2 (09:00→22:56)
[2022-07-03 09:14] VITALS: BP 98/45
[2022-07-04] VITALS: BP 99/39
== END 2022-07-04 13:01 | DRG 441 ==
LOC: EDH 17:39 → EDHIP 21:27 → 3AH 23:55 → 2BH 06-20 14:24 → 2DH 06-21 12:32 → 2AH 06-21 15:00 → 3CH 06-26 13:29 → 2CH 06-28 11:38 → 4CH 07-01 23:29
PROVIDERS: ADMIT Internal Medicine; ATTEND Internal Medicine
PROC: 5A1945Z Respiratory Ventilation, 24-96 Consecutive Hours (ICD-10-PCS; principal; 2022-06-28)
PROC: 0BH17EZ Insertion of Endotracheal Airway into Trachea, Via Natural or Artificial Opening (ICD-10-PCS; 2022-06-28)
PROC: 30233N1 Transfusion of Nonautologous Red Blood Cells into Peripheral Vein, Percutaneous Approach (ICD-10-PCS; 2022-06-28)
PROC: 30233K1 Transfusion of Nonautologous Frozen Plasma into Peripheral Vein, Percutaneous Approach (ICD-10-PCS; 2022-06-28)
DX: K76.82 Hepatic encephalopathy (principal); A41.9 Sepsis, unspecified organism; E43 Unspecified severe protein-calorie malnutrition; K65.2 Spontaneous bacterial peritonitis; K76.7 Hepatorenal syndrome; R65.21 Severe sepsis with septic shock; J96.90 Respiratory failure, unspecified, unspecified whether with hypoxia or hypercapnia; E87.1 Hypo-osmolality and hyponatremia; N17.9 Acute kidney failure, unspecified; E27.40 Unspecified adrenocortical insufficiency; D68.9 Coagulation defect, unspecified; E87.0 Hyperosmolality and hypernatremia; D61.818 Other pancytopenia; D62 Acute posthemorrhagic anemia; E87.4 Mixed disorder of acid-base balance; K92.2 Gastrointestinal hemorrhage, unspecified; K76.6 Portal hypertension; K74.69 Other cirrhosis of liver; T38.3X5A Adverse effect of insulin and oral hypoglycemic [antidiabetic] drugs, initial encounter; D69.6 Thrombocytopenia, unspecified; R29.6 Repeated falls; K76.9 Liver disease, unspecified; E86.9 Volume depletion, unspecified; Z68.24 Body mass index [BMI] 24.0-24.9, adult; Z20.822 Contact with and (suspected) exposure to COVID-19; D50.9 Iron deficiency anemia, unspecified; E11.22 Type 2 diabetes mellitus with diabetic chronic kidney disease; E11.649 Type 2 diabetes mellitus with hypoglycemia without coma; E78.00 Pure hypercholesterolemia, unspecified; E86.0 Dehydration; E88.09 Other disorders of plasma-protein metabolism, not elsewhere classified; K70.40 Alcoholic hepatic failure without coma; I12.9 Hypertensive chronic kidney disease with stage 1 through stage 4 chronic kidney disease, or unspecified chronic kidney disease; L89.152 Pressure ulcer of sacral region, stage 2; N18.9 Chronic kidney disease, unspecified; R62.7 Adult failure to thrive; S51.811A Laceration without foreign body of right forearm, initial encounter; Z51.5 Encounter for palliative care; Z83.3 Family history of diabetes mellitus; Z87.11 Personal history of peptic ulcer disease; S51.812A Laceration without foreign body of left forearm, initial encounter; Z66 Do not resuscitate; Z79.899 Other long term (current) drug therapy; Z82.49 Family history of ischemic heart disease and other diseases of the circulatory system; W19.XXXA Unspecified fall, initial encounter; Y93.89 Activity, other specified; Y92.89 Other specified places as the place of occurrence of the external cause; Y99.8 Other external cause status
CPT/HCPCS: 31500; 36415; 36430; 36600; 70551; 71045; 74018; 76700; 80048; 80053; 81001; 82105; 82140; 82435; 82550; 82607; 82728; 82746; 82803; 82947; 82948; 83036; 83540; 83550; 83605; 83735; 83874; 83880; 84100; 84132; 84145; 84295; 84439; 84443; 84481; 84484; 85007; 85018; 85025; 85027; 85045; 85384; 85610; 85730; 86850; 86900; 86901; 86923; 86927; 87040; 87088; 87635; 94002; 94003; 94640; 94760; 97039; 99291; A4357; A4606; G0378; J0692; J0696; J1450; J1720; J1756; J2060; J2185; J2270; J2354; J2370; J2543; J3370; J3411; J3430; J3490; J7030; J7050; J7070; P9012; P9016; P9017; P9034; P9045; P9046; P9047